=== PATIENT | male | born 1965 | race African-American/Black ===

== ENCOUNTER 2022-03-11 13:21 | Inpatient (IN) | payer OTHER ==
[2022-03-11 15:39] VITALS: BMI 19.9
[2022-03-11] MEDS ORDERED: LOPERAMIDE HCL 2 MG CAPSULE PO PRN (15:44)
[2022-03-11] MEDS ORDERED: METHOCARBAMOL 500 MG TABLET PO PRN (15:44)
[2022-03-11] MEDS ORDERED: NICOTINE 10 MG CARTRIDGE (INHALER) IH PRN (15:44)
[2022-03-11] MEDS ORDERED: ONDANSETRON *ODT* 4 MG TABLET SL PRN (15:44)
[2022-03-11] MEDS ORDERED: BISMUTH SUBSALICYLATE 524 MG/30 ML PO PRN (15:44)
[2022-03-11] MEDS ORDERED: MAG HYDROX/AL HYDROX/SIMETH 30 ML UNIT-DOSE CUP PO PRN (15:44)
[2022-03-11] MEDS ORDERED: NICOTINE POLACRILEX 4 MG GUM BUC PRN (15:44)
[2022-03-11] MEDS ORDERED: BENZOCAINE/MENTHOL (CHLORASEPTIC ) LOZENGE MM PRN (15:44)
[2022-03-11] MEDS ORDERED: MAGNESIUM CITRATE 300 ML BOTTLE PO PRN (15:44)
[2022-03-11] MEDS ORDERED: DICYCLOMINE HCL 10 MG CAPSULE PO PRN (15:44)
[2022-03-11] MEDS ORDERED: MAGNESIUM HYDROX 2400MG/30ML ORAL SUSPENSION 30 ML CUP PO PRN (15:44)
[2022-03-11] MEDS ORDERED: ACETAMINOPHEN 325 MG TABLET (FP) PO PRN ×2 (15:44)
[2022-03-11] MEDS ORDERED: IBUPROFEN 400 MG TABLET (FP) PO PRN (15:44)
[2022-03-11] MEDS: NICOTINE 14 MG/24 HOURS TOPICAL PATCH TD SCH (20:19)
[2022-03-11] MEDS: IBUPROFEN 600 MG TABLET (FP) PO PRN (20:23)
[2022-03-11] MEDS: hydrOXYzine PAMOATE 25 MG CAPSULE (FP) PO SCH ×2 (20:32→21:59)
[2022-03-11] MEDS: levETIRAcetam 500 MG TABLET (FP) PO SCH (21:58)
[2022-03-11] MEDS: amLODIPine BESYLATE 10 MG TABLET (FP) PO SCH (21:58)
[2022-03-11] MEDS: THIAMINE HCL 100 MG TABLET (FP) PO SCH (21:59)
[2022-03-11] MEDS: MELATONIN 5 MG TABLETS PO SCH (21:59)
[2022-03-11] MEDS: FAMOTIDINE 20 MG TABLET PO SCH (21:59)
[2022-03-11] MEDS ORDERED: cloNIDine HCL 0.1 MG TABLET PO ONE (23:40)
[2022-03-12] MEDS: IBUPROFEN 600 MG TABLET (FP) PO PRN ×2 (07:13→23:03)
[2022-03-12] MEDS: FAMOTIDINE 20 MG TABLET PO SCH ×2 (10:20→22:19)
[2022-03-12] MEDS: levETIRAcetam 500 MG TABLET (FP) PO SCH ×2 (10:20→22:19)
[2022-03-12] MEDS: amLODIPine BESYLATE 10 MG TABLET (FP) PO SCH (10:20)
[2022-03-12] MEDS: NICOTINE 14 MG/24 HOURS TOPICAL PATCH TD SCH (10:21)
[2022-03-12] MEDS: PRENATAL VITAMINS W/ FOLIC ACID TABLET (FP) PO SCH (10:21)
[2022-03-12 10:32] LABS: HEMATOCRIT 41.4 % (35.4-49); HEMOGLOBIN 13.7 GM/dL (11.7-16.9); MCH 29.9 pg (25.7-33.7); MCHC 33.1 g/dl (32.0-35.9); MEAN CELL VOLUME 90.5 fl (80-96); MEAN PLT VOLUME 9.2 fl (7.5-11.1); PLATELET COUNT 163 10^3/uL (134-434); RBC 4.58 M/mm3 (4.00-5.60); RDW 13.6 % (11.9-15.9); WHITE BLOOD COUNT 4.4 K/mm3 (4.0-10.0)
[2022-03-12 10:34] LABS: CALCIUM 9.7 mg/dL (8.5-10.1)
[2022-03-12 10:35] LABS: ALBUMIN 3.4 g/dl (3.4-5.0); BLOOD UREA NITROGEN 15.3 mg/dL (7-18)
[2022-03-12 10:38] LABS: CREATININE 0.8 mg/dL (0.55-1.3)
[2022-03-12 10:40] LABS: BILIRUBIN,TOTAL 1.1 mg/dL (0.2-1); TOT PROT 7.6 g/dl (6.4-8.2)
[2022-03-12] MEDS ORDERED: cloNIDine HCL 0.1 MG TABLET PO ONE (22:10)
[2022-03-12] MEDS: MELATONIN 5 MG TABLETS PO SCH (22:19)
[2022-03-12] MEDS: THIAMINE HCL 100 MG TABLET (FP) PO SCH (22:19)
[2022-03-13] MEDS: amLODIPine BESYLATE 10 MG TABLET (FP) PO SCH (10:19)
[2022-03-13] MEDS: FAMOTIDINE 20 MG TABLET PO SCH ×2 (10:19→22:27)
[2022-03-13] MEDS: levETIRAcetam 500 MG TABLET (FP) PO SCH ×2 (10:19→22:27)
[2022-03-13] MEDS: NICOTINE 14 MG/24 HOURS TOPICAL PATCH TD SCH (10:20)
[2022-03-13] MEDS: PRENATAL VITAMINS W/ FOLIC ACID TABLET (FP) PO SCH (10:20)
[2022-03-13] MEDS: IBUPROFEN 600 MG TABLET (FP) PO PRN ×2 (10:22→17:53)
[2022-03-13] MEDS ORDERED: chlordiazePOXIDE HCL 25 MG CAPSULE PO PRN (18:26)
[2022-03-13] MEDS: chlordiazePOXIDE HCL 25 MG CAPSULE PO SCH ×2 (18:55→22:28)
[2022-03-13] MEDS: THIAMINE HCL 100 MG TABLET (FP) PO SCH (22:28)
[2022-03-13] MEDS: MELATONIN 5 MG TABLETS PO SCH (22:28)
[2022-03-14] MEDS: chlordiazePOXIDE HCL 25 MG CAPSULE PO SCH ×2 (05:23→10:10)
[2022-03-14] MEDS: IBUPROFEN 600 MG TABLET (FP) PO PRN (05:59)
[2022-03-14] MEDS: FAMOTIDINE 20 MG TABLET PO SCH ×2 (10:10→22:44)
[2022-03-14] MEDS: NICOTINE 14 MG/24 HOURS TOPICAL PATCH TD SCH (10:10)
[2022-03-14] MEDS: levETIRAcetam 500 MG TABLET (FP) PO SCH ×2 (10:10→22:43)
[2022-03-14] MEDS: PRENATAL VITAMINS W/ FOLIC ACID TABLET (FP) PO SCH (10:10)
[2022-03-14] MEDS: amLODIPine BESYLATE 10 MG TABLET (FP) PO SCH (10:10)
[2022-03-14] MEDS ORDERED: LORazepam 1 MG TABLET PO PRN (10:24)
[2022-03-14] MEDS: LORazepam 2 MG TABLET PO SCH ×3 (11:42→22:45)
[2022-03-14] MEDS: MELATONIN 5 MG TABLETS PO SCH (22:43)
[2022-03-14] MEDS: THIAMINE HCL 100 MG TABLET (FP) PO SCH (22:44)
[2022-03-15] MEDS ORDERED: chlordiazePOXIDE HCL 25 MG CAPSULE PO SCH (05:00)
[2022-03-15] MEDS: LORazepam 2 MG TABLET PO SCH ×4 (06:25→22:59)
[2022-03-15] MEDS ORDERED: cloNIDine HCL 0.1 MG TABLET PO ONE (08:39)
[2022-03-15 10:31] LABS: CALCIUM 9.4 mg/dL (8.5-10.1)
[2022-03-15 10:32] LABS: ALBUMIN 3.4 g/dl (3.4-5.0); BLOOD UREA NITROGEN 17.2 mg/dL (7-18)
[2022-03-15 10:35] LABS: CREATININE 0.8 mg/dL (0.55-1.3)
[2022-03-15 10:37] LABS: BILIRUBIN,TOTAL 0.5 mg/dL (0.2-1)
[2022-03-15 10:38] LABS: TOT PROT 7.3 g/dl (6.4-8.2)
[2022-03-15] MEDS: FAMOTIDINE 20 MG TABLET PO SCH ×2 (11:07→22:58)
[2022-03-15] MEDS: levETIRAcetam 500 MG TABLET (FP) PO SCH ×2 (11:08→22:58)
[2022-03-15] MEDS: amLODIPine BESYLATE 10 MG TABLET (FP) PO SCH (11:08)
[2022-03-15] MEDS: PRENATAL VITAMINS W/ FOLIC ACID TABLET (FP) PO SCH (11:09)
[2022-03-15] MEDS: NICOTINE 14 MG/24 HOURS TOPICAL PATCH TD SCH (11:10)
[2022-03-15 14:29] VITALS: PULSE 79; TEMP 97.5
[2022-03-15] MEDS: cloNIDine HCL 0.1 MG TABLET PO SCH ×2 (14:59→22:58)
[2022-03-15 16:18] VITALS: BP 165/105
[2022-03-15] MEDS: MELATONIN 5 MG TABLETS PO SCH (22:58)
[2022-03-15] MEDS: THIAMINE HCL 100 MG TABLET (FP) PO SCH (22:59)
[2022-03-16] MEDS ORDERED: chlordiazePOXIDE HCL 10 MG CAPSULE PO PRN
[2022-03-16] MEDS ORDERED: LORazepam 1 MG TABLET PO SCH (05:00)
[2022-03-16] MEDS ORDERED: chlordiazePOXIDE HCL 10 MG CAPSULE PO SCH (05:00)
[2022-03-17] MEDS ORDERED: LORazepam 0.5 MG TABLET PO PRN
[2022-03-17] MEDS ORDERED: LORazepam 0.5 MG TABLET PO SCH (05:00)
[2022-03-17] MEDS ORDERED: chlordiazePOXIDE HCL 10 MG CAPSULE PO SCH (05:00)
[2022-03-18] MEDS ORDERED: chlordiazePOXIDE HCL 10 MG CAPSULE PO ONE (05:00)
== END 2022-03-15 23:52 | disposition short-term general hospital (02) | DRG 775 ==
LOC: YASAS 13:21 → Y3N 18:40 → UNDOADMIN 18:40
PROVIDERS: ADMIT Allergy & Immunology; ATTEND Psychiatry & Neurology Psychiatry
PROC: HZ2ZZZZ Detoxification Services for Substance Abuse Treatment (ICD-10-PCS; principal; 2022-03-11)
DX: F10.230 Alcohol dependence with withdrawal, uncomplicated (principal); F12.20 Cannabis dependence, uncomplicated; F17.210 Nicotine dependence, cigarettes, uncomplicated; I10 Essential (primary) hypertension; I45.81 Long QT syndrome; N39.498 Other specified urinary incontinence; G40.909 Epilepsy, unspecified, not intractable, without status epilepticus; M62.81 Muscle weakness (generalized); R94.5 Abnormal results of liver function studies; R26.2 Difficulty in walking, not elsewhere classified; R41.82 Altered mental status, unspecified; W19.XXXA Unspecified fall, initial encounter; Z91.81 History of falling; Y93.89 Activity, other specified; Y92.231 Patient bathroom in hospital as the place of occurrence of the external cause; I73.89 Other specified peripheral vascular diseases; M32.9 Systemic lupus erythematosus, unspecified; U09.9 Post COVID-19 condition, unspecified; Z28.310 Unvaccinated for COVID-19
CPT/HCPCS: 36415; 80053; 85027; 86780; 93005; 93010; C9803-CS; J0735; U0003; U0005

== ENCOUNTER 2022-03-14 19:04 | Emergency (ER) | payer OTHER ==
[2022-03-14 19:37] VITALS: BP 156/99; PULSE 90; TEMP 97.7; BMI 22.9
== END 2022-03-14 20:55 ==
LOC: JER 19:04
DX: R41.82 Altered mental status, unspecified (principal)
CPT/HCPCS: 36415; 80177; 99283-25

== ENCOUNTER 2022-03-15 16:06 | Inpatient (IN) | payer OTHER ==
[2022-03-15 20:23] LABS: BASO % 1.4 % (0-2.0); EOS % 3.2 % (0-4.5); HEMATOCRIT 40.6 % (35.4-49); HEMOGLOBIN 13.6 GM/dL (11.7-16.9); LYMPH % 37.5 % (8-40); MCH 30.3 pg (25.7-33.7); MCHC 33.4 g/dl (32.0-35.9); MEAN CELL VOLUME 90.5 fl (80-96); MONO % 12.4 % (3.8-10.2); NEUT % 45.5 % (42.8-82.8); PLATELET COUNT 224 10^3/uL (134-434); RBC 4.49 M/mm3 (4.00-5.60); RDW 13.9 % (11.9-15.9); WHITE BLOOD COUNT 6.1 K/mm3 (4.0-10.0)
[2022-03-15 20:35] LABS: INR 1.04 (0.83-1.09)
[2022-03-15] MEDS ORDERED: levETIRAcetam 500 MG/5 ML INJECTION VIAL IVPB ONE ×2 (23:11→23:56)
[2022-03-15] MEDS ORDERED: SODIUM CHLORIDE 1,000 ML IV SCH ×2 (23:15)
[2022-03-15] MEDS ORDERED: chlordiazePOXIDE HCL 25 MG CAPSULE ONE (23:57)
[2022-03-16] MEDS: chlordiazePOXIDE HCL 25 MG CAPSULE PO SCH ×5 (00:18→22:07)
[2022-03-16] MEDS ORDERED: PHENAZOPYRIDINE HCL 100 MG TABLET (FP) ONE ×2 (06:28→13:33)
[2022-03-16] MEDS ORDERED: chlordiazePOXIDE HCL 25 MG CAPSULE ONE ×5 (06:28→16:45)
[2022-03-16] MEDS: PHENAZOPYRIDINE HCL 100 MG TABLET (FP) PO SCH ×3 (06:31→22:07)
[2022-03-16 07:49] LABS: EOS % 3.5 % (0-4.5); HEMOGLOBIN 13.6 GM/dL (11.7-16.9); LYMPH % 41.3 % (8-40); MCH 29.3 pg (25.7-33.7); MCHC 32.3 g/dl (32.0-35.9); MEAN CELL VOLUME 90.6 fl (80-96); MEAN PLT VOLUME 8.9 fl (7.5-11.1); MONO % 8.8 % (3.8-10.2); NEUT % 45.4 % (42.8-82.8); PLATELET COUNT 224 10^3/uL (134-434); RBC 4.64 M/mm3 (4.00-5.60); RDW 13.8 % (11.9-15.9); WHITE BLOOD COUNT 5.3 K/mm3 (4.0-10.0)
[2022-03-16 08:11] LABS: EPI CELLS 11 /uL (0-25.1); HYALINE CASTS 1 /uL (0-3.1); URINE APPEARANCE CLEAR; URINE BILIRUBIN NEGATIVE (NEGATIVE); URINE COLOR YELLOW; URINE GLUCOSE (UA) NEGATIVE (NEGATIVE); URINE KETONE NEGATIVE (NEGATIVE); URINE LEUK ESTERASE TRACE (NEGATIVE); URINE NITRITE POSITIVE (NEGATIVE); URINE PROTEIN NEGATIVE (NEGATIVE); URINE RBC 3 /uL (0-23.9); URINE WBC 68 /uL (0-25.8)
[2022-03-16 08:29] LABS: METHADONE, UR NEGATIVE (NEGATIVE); OPIATES, URI NEGATIVE (NEGATIVE); URINE AMPHETAMINES NEGATIVE (NEGATIVE); URINE BARBITURATES NEGATIVE (NEGATIVE)
[2022-03-16 08:30] LABS: PHENCYCLIDINE,URINE NEGATIVE (NEGATIVE)
[2022-03-16 08:32] LABS: COCAINE, UR NEGATIVE (NEGATIVE); URINE BENZODIAZEPINES POSITIVE (NEGATIVE)
[2022-03-16] MEDS: chlordiazePOXIDE HCL 25 MG CAPSULE PO PRN ×2 (08:40→13:36)
[2022-03-16 08:43] LABS: URINE BACTERIA 1226 /uL (0-1359)
[2022-03-16 09:05] LABS: BLOOD UREA NITROGEN 19.4 mg/dL (7-18); CALCIUM 9.3 mg/dL (8.5-10.1)
[2022-03-16 09:06] LABS: MAGNESIUM 2.1 mg/dL (1.8-2.4)
[2022-03-16 09:09] LABS: CREATININE 0.9 mg/dL (0.55-1.3)
[2022-03-16 09:10] LABS: PHOSPHOROUS 4.2 mg/dL (2.5-4.9)
[2022-03-16] MEDS ORDERED: amLODIPine BESYLATE 10 MG TABLET (FP) ONE (09:27)
[2022-03-16] MEDS ORDERED: ENOXAPARIN NA (PORCINE) 40 MG/0.4 ML DISP.SYRIN SQ ONE (09:27)
[2022-03-16] MEDS ORDERED: FAMOTIDINE 20 MG TABLET ONE (09:27)
[2022-03-16] MEDS ORDERED: levETIRAcetam 500 MG TABLET (FP) PO ONE (09:27)
[2022-03-16] MEDS: levETIRAcetam 500 MG TABLET (FP) PO SCH ×2 (09:38→22:07)
[2022-03-16] MEDS: FAMOTIDINE 20 MG TABLET PO SCH ×2 (09:38→22:07)
[2022-03-16] MEDS: ENOXAPARIN NA (PORCINE) 40 MG/0.4 ML DISP.SYRIN SQ SCH (09:41)
[2022-03-16] MEDS ORDERED: amLODIPine BESYLATE 10 MG TABLET (FP) PO SCH (10:00)
[2022-03-16] MEDS ORDERED: THIAMINE HCL 200 MG/2 ML VIAL IVPB SCH (11:00)
[2022-03-16] MEDS ORDERED: THIAMINE HCL 200 MG/2 ML VIAL ONE (11:01)
[2022-03-16] MEDS: LACTATED RINGERS SOLUTION 1,000 ML/1,000 ML INFUS.BAG IV SCH (11:32)
[2022-03-16] MEDS ORDERED: VALSARTAN 40 MG TABLET PO SCH ×2 (13:15)
[2022-03-16] MEDS ORDERED: VALSARTAN 40 MG TABLET PO ONE (13:32)
[2022-03-16] MEDS ORDERED: VALSARTAN 80 MG TABLET ONE (13:33)
[2022-03-16] MEDS ORDERED: HALOPERIDOL LACTATE 5 MG/ML IM ONE (22:07)
[2022-03-17] MEDS: LACTATED RINGERS SOLUTION 1,000 ML/1,000 ML INFUS.BAG IV SCH ×4 (00:36→23:36)
[2022-03-17] MEDS ORDERED: HALOPERIDOL LACTATE 5 MG/ML IM PRN (03:21)
[2022-03-17] MEDS: PHENAZOPYRIDINE HCL 100 MG TABLET (FP) PO SCH ×3 (06:25→23:36)
[2022-03-17] MEDS: chlordiazePOXIDE HCL 25 MG CAPSULE PO SCH ×4 (06:25→23:34)
[2022-03-17] MEDS ORDERED: LACTULOSE 20 GM/30 ML UDC (FOR ORAL USE ONLY) PO ONE (08:45)
[2022-03-17 08:49] LABS: ALBUMIN 3.9 g/dl (3.4-5.0); CALCIUM 9.8 mg/dL (8.5-10.1)
[2022-03-17 08:52] LABS: CREATININE 0.8 mg/dL (0.55-1.3)
[2022-03-17 08:54] LABS: BILIRUBIN,TOTAL 0.7 mg/dL (0.2-1); TOT PROT 8.1 g/dl (6.4-8.2)
[2022-03-17] MEDS: ASPIRIN COATED 81 MG TABLET.EC PO SCH (09:50)
[2022-03-17] MEDS: FAMOTIDINE 20 MG TABLET PO SCH ×2 (09:50→23:35)
[2022-03-17] MEDS: levETIRAcetam 500 MG TABLET (FP) PO SCH ×2 (09:50→23:35)
[2022-03-17] MEDS: VALSARTAN 40 MG TABLET PO SCH (09:50)
[2022-03-17] MEDS: ENOXAPARIN NA (PORCINE) 40 MG/0.4 ML DISP.SYRIN SQ SCH (09:50)
[2022-03-17] MEDS: THIAMINE HCL 100 MG TABLET (FP) PO SCH (09:50)
[2022-03-17] MEDS ORDERED: amLODIPine BESYLATE 10 MG TABLET (FP) PO SCH ×2 (10:00→22:00)
[2022-03-17 10:04] LABS: BASO % 0.7 % (0-2.0); EOS % 2.4 % (0-4.5); HEMATOCRIT 44.6 % (35.4-49); HEMOGLOBIN 14.7 GM/dL (11.7-16.9); LYMPH % 30.4 % (8-40); MCH 29.8 pg (25.7-33.7); MCHC 32.9 g/dl (32.0-35.9); MEAN CELL VOLUME 90.6 fl (80-96); MEAN PLT VOLUME 8.7 fl (7.5-11.1); NEUT % 45.5 % (42.8-82.8); PLATELET COUNT 224 10^3/uL (134-434); RBC 4.92 M/mm3 (4.00-5.60); RDW 13.8 % (11.9-15.9); WHITE BLOOD COUNT 9.7 K/mm3 (4.0-10.0)
[2022-03-17 12:19] LABS: ANISOCYTOSIS 1+; MACROCYTOSIS 0; OVALOCYTE 1+; TEAR DROP CELLS 1+
[2022-03-17] MEDS ORDERED: LACTULOSE 20 GM/30 ML UDC (FOR ORAL USE ONLY) PO PRN (16:56)
[2022-03-17] MEDS: LACTULOSE 20 GM/30 ML UDC (FOR ORAL USE ONLY) PO SCH (23:34)
[2022-03-17] MEDS ORDERED: amLODIPine BESYLATE 10 MG TABLET (FP) PO ONE (23:34)
[2022-03-18] MEDS ORDERED: chlordiazePOXIDE HCL 10 MG CAPSULE PO PRN
[2022-03-18] MEDS ORDERED: hydrALAZINE HCL 10 MG TABLET PO ONE (03:09)
[2022-03-18] MEDS ORDERED: LACTULOSE 20 GM/30 ML UDC (FOR RECTAL USE ONLY) PR SCH (05:44)
[2022-03-18] MEDS: chlordiazePOXIDE HCL 10 MG CAPSULE PO SCH ×4 (06:00→23:56)
[2022-03-18] MEDS: LACTULOSE 20 GM/30 ML UDC (FOR ORAL USE ONLY) PO SCH ×3 (06:00→22:23)
[2022-03-18] MEDS: PHENAZOPYRIDINE HCL 100 MG TABLET (FP) PO SCH ×3 (06:00→22:24)
[2022-03-18 06:46] LABS: ARTERIAL BLD GAS O2 SATURATION 96.4 % (95-98); ARTERIAL BLOOD GAS BASE EXCESS -0.6 mmol/L (-2-2); ARTERIAL BLOOD GAS PO2 79.8 mmHg (80-100); ARTERIAL BLOOD GAS pH 7.457 (7.350-7.450)
[2022-03-18 09:04] LABS: EPI CELLS 3 /uL (0-25.1); HYALINE CASTS 0 /uL (0-3.1); PH,URINE 7.5 (5.0-8.0); URINE APPEARANCE CLEAR; URINE BILIRUBIN NEGATIVE (NEGATIVE); URINE COLOR DK YELLOW; URINE GLUCOSE (UA) NEGATIVE (NEGATIVE); URINE KETONE NEGATIVE (NEGATIVE); URINE LEUK ESTERASE TRACE (NEGATIVE); URINE NITRITE POSITIVE (NEGATIVE); URINE PROTEIN NEGATIVE (NEGATIVE); URINE RBC 6 /uL (0-23.9); URINE WBC 10 /uL (0-25.8)
[2022-03-18 09:09] LABS: METHADONE, UR NEGATIVE (NEGATIVE); OPIATES, URI NEGATIVE (NEGATIVE); PHENCYCLIDINE,URINE NEGATIVE (NEGATIVE); URINE AMPHETAMINES NEGATIVE (NEGATIVE)
[2022-03-18 09:22] LABS: COCAINE, UR NEGATIVE (NEGATIVE); URINE BARBITURATES NEGATIVE (NEGATIVE); URINE BENZODIAZEPINES POSITIVE (NEGATIVE)
[2022-03-18] MEDS: VALSARTAN 40 MG TABLET PO SCH (09:41)
[2022-03-18] MEDS: ASPIRIN COATED 81 MG TABLET.EC PO SCH (09:41)
[2022-03-18] MEDS: levETIRAcetam 500 MG TABLET (FP) PO SCH ×2 (09:41→22:24)
[2022-03-18] MEDS: FAMOTIDINE 20 MG TABLET PO SCH ×2 (09:41→22:24)
[2022-03-18] MEDS: ENOXAPARIN NA (PORCINE) 40 MG/0.4 ML DISP.SYRIN SQ SCH (09:41)
[2022-03-18] MEDS: THIAMINE HCL 100 MG TABLET (FP) PO SCH (09:41)
[2022-03-18] MEDS ORDERED: LORazepam 2 MG/ML SDV VIAL IVPUSH ONE (10:45)
[2022-03-18 11:22] LABS: BASO % 0.6 % (0-2.0); EOS % 1.2 % (0-4.5); HEMATOCRIT 39.8 % (35.4-49); HEMOGLOBIN 13.4 GM/dL (11.7-16.9); MCH 29.9 pg (25.7-33.7); MCHC 33.8 g/dl (32.0-35.9); MEAN CELL VOLUME 88.5 fl (80-96); MEAN PLT VOLUME 8.7 fl (7.5-11.1); MONO % 10.1 % (3.8-10.2); NEUT % 66.1 % (42.8-82.8); PLATELET COUNT 283 10^3/uL (134-434); RBC 4.49 M/mm3 (4.00-5.60); RDW 13.6 % (11.9-15.9); WHITE BLOOD COUNT 9.2 K/mm3 (4.0-10.0)
[2022-03-18 11:36] LABS: ALBUMIN 3.8 g/dl (3.4-5.0); BLOOD UREA NITROGEN 7.8 mg/dL (7-18); CALCIUM 9.9 mg/dL (8.5-10.1); MAGNESIUM 1.8 mg/dL (1.8-2.4)
[2022-03-18 11:40] LABS: BILIRUBIN,TOTAL 0.7 mg/dL (0.2-1); CREATININE 0.7 mg/dL (0.55-1.3); PHOSPHOROUS 4.4 mg/dL (2.5-4.9); TOT PROT 8.1 g/dl (6.4-8.2)
[2022-03-18] MEDS ORDERED: VALSARTAN 40 MG TABLET PO SCH (12:25)
[2022-03-18] MEDS ORDERED: LORazepam 2 MG/ML SDV VIAL IVPUSH PRN (12:26)
[2022-03-18 13:48] LABS: URINE BACTERIA 298.9 /uL (0-1359)
[2022-03-18] MEDS ORDERED: VALSARTAN 40 MG TABLET PO ONE ×2 (20:00→22:30)
[2022-03-19] MEDS ORDERED: chlordiazePOXIDE HCL 10 MG CAPSULE PO SCH (05:00)
[2022-03-19] MEDS: PHENAZOPYRIDINE HCL 100 MG TABLET (FP) PO SCH ×3 (06:13→23:08)
[2022-03-19] MEDS: LACTULOSE 20 GM/30 ML UDC (FOR ORAL USE ONLY) PO SCH ×2 (06:13→16:28)
[2022-03-19 08:55] LABS: BASO % 0.6 % (0-2.0); EOS % 0.1 % (0-4.5); HEMATOCRIT 42.6 % (35.4-49); HEMOGLOBIN 13.9 GM/dL (11.7-16.9); LYMPH % 16.5 % (8-40); MCH 29.3 pg (25.7-33.7); MCHC 32.7 g/dl (32.0-35.9); MEAN CELL VOLUME 89.6 fl (80-96); MEAN PLT VOLUME 8.7 fl (7.5-11.1); MONO % 15.8 % (3.8-10.2); PLATELET COUNT 275 10^3/uL (134-434); RBC 4.75 M/mm3 (4.00-5.60); RDW 13.7 % (11.9-15.9); WHITE BLOOD COUNT 13.3 K/mm3 (4.0-10.0)
[2022-03-19 09:36] LABS: CALCIUM 9.3 mg/dL (8.5-10.1)
[2022-03-19 09:37] LABS: BLOOD UREA NITROGEN 16.2 mg/dL (7-18)
[2022-03-19] MEDS ORDERED: amLODIPine BESYLATE 10 MG TABLET (FP) PO SCH ×3 (10:00→22:00)
[2022-03-19] MEDS ORDERED: VALSARTAN 40 MG TABLET PO SCH (10:00)
[2022-03-19] MEDS: levETIRAcetam 500 MG TABLET (FP) PO SCH (10:13)
[2022-03-19] MEDS: FAMOTIDINE 20 MG TABLET PO SCH (10:13)
[2022-03-19] MEDS: THIAMINE HCL 100 MG TABLET (FP) PO SCH (10:14)
[2022-03-19] MEDS: ASPIRIN COATED 81 MG TABLET.EC PO SCH (10:14)
[2022-03-19] MEDS: ENOXAPARIN NA (PORCINE) 40 MG/0.4 ML DISP.SYRIN SQ SCH (10:15)
[2022-03-19 13:45] LABS: ARTERIAL BLD GAS O2 SATURATION 96.3 % (95-98); ARTERIAL BLOOD GAS BASE EXCESS 2.3 mmol/L (-2-2); ARTERIAL BLOOD GAS PO2 75.3 mmHg (80-100); ARTERIAL BLOOD GAS pH 7.508 (7.350-7.450)
[2022-03-19 13:49] LABS: ALLENS TEST POSITIVE
[2022-03-19] MEDS ORDERED: VANCOMYCIN 1 GM/200 ML PREMIX BAG IVPB ONE (14:25)
[2022-03-19] MEDS ORDERED: CEFTRIAXONE 1 GM in DEXTROSE 5%-WATER - 50 ML IVPB SCH (14:30)
[2022-03-19] MEDS ORDERED: LACTULOSE 20 GM/30 ML UDC (FOR RECTAL USE ONLY) PR SCH ×2 (14:30→22:00)
[2022-03-19] MEDS ORDERED: cefTRIAXone SODIUM 1 GM VIAL ONE (15:49)
[2022-03-19] MEDS ORDERED: DEXTROSE 5%-WATER - 50 ML IVPB ONE (15:49)
[2022-03-19 17:19] LABS: LACTIC ACID 3.2 mmol/L (0.4-2.0)
[2022-03-19] MEDS: LACTATED RINGERS SOLUTION 1,000 ML/1,000 ML INFUS.BAG IV SCH (18:15)
[2022-03-19] MEDS ORDERED: FAMOTIDINE 20 MG TABLET PO SCH (22:00)
[2022-03-19] MEDS ORDERED: levETIRAcetam 500 MG TABLET (FP) PO SCH (22:00)
[2022-03-19] MEDS ORDERED: ACETAMINOPHEN 1000 MG/100 ML BAG IVPB ONE (22:10)
[2022-03-19] MEDS ORDERED: FAMOTIDINE 20 MG/50 ML IVPB 20 MG/50 ML MG IVPB ONE (22:11)
[2022-03-19] MEDS ORDERED: METOPROLOL TARTRATE 5 MG/5 ML VIAL IVPUSH ONE (22:12)
[2022-03-19] MEDS: levETIRAcetam 500 MG/5 ML INJECTION VIAL IVPB SCH (23:17)
[2022-03-19] MEDS: LACTULOSE 10 GM/15 ML BULK BOTTLE RC SCH (23:17)
[2022-03-20] MEDS ORDERED: METOPROLOL TARTRATE 5 MG/5 ML VIAL IVPUSH ONE (02:42)
[2022-03-20] MEDS ORDERED: chlordiazePOXIDE HCL 10 MG CAPSULE PO ONE (05:00)
[2022-03-20] MEDS: PHENAZOPYRIDINE HCL 100 MG TABLET (FP) PO SCH (05:47)
[2022-03-20] MEDS: LACTULOSE 10 GM/15 ML BULK BOTTLE RC SCH ×3 (05:47→22:58)
[2022-03-20] MEDS ORDERED: cefTRIAXone SODIUM 1 GM VIAL ONE (09:31)
[2022-03-20] MEDS ORDERED: DEXTROSE 5%-WATER - 50 ML IVPB ONE ×4 (09:31→23:58)
[2022-03-20] MEDS: ENOXAPARIN NA (PORCINE) 40 MG/0.4 ML DISP.SYRIN SQ SCH (09:40)
[2022-03-20] MEDS: levETIRAcetam 500 MG/5 ML INJECTION VIAL IVPB SCH ×2 (09:40→22:58)
[2022-03-20 09:56] LABS: BASO % 0.7 % (0-2.0); EOS % 0.3 % (0-4.5); HEMATOCRIT 37.1 % (35.4-49); HEMOGLOBIN 12.4 GM/dL (11.7-16.9); LYMPH % 12.8 % (8-40); MCH 29.8 pg (25.7-33.7); MCHC 33.5 g/dl (32.0-35.9); MEAN CELL VOLUME 88.8 fl (80-96); MEAN PLT VOLUME 8.3 fl (7.5-11.1); MONO % 14.6 % (3.8-10.2); NEUT % 71.6 % (42.8-82.8); PLATELET COUNT 298 10^3/uL (134-434); RBC 4.18 M/mm3 (4.00-5.60); RDW 13.5 % (11.9-15.9); WHITE BLOOD COUNT 14.6 K/mm3 (4.0-10.0)
[2022-03-20] MEDS ORDERED: THIAMINE HCL 100 MG TABLET (FP) PO SCH (10:00)
[2022-03-20] MEDS ORDERED: CEFTRIAXONE 1 GM in DEXTROSE 5%-WATER - 50 ML IVPB SCH (10:00)
[2022-03-20] MEDS ORDERED: PIPERACILLIN/TAZOB 3.375 GM 3.375 GM in DEXTROSE 5%-WATER - 50 ML IVPB SCH (10:00)
[2022-03-20] MEDS ORDERED: VANCOMYCIN 1 GM in D5W (PRE-DOCKED) 1,000 MG/250 ML IVPB SCH (10:00)
[2022-03-20] MEDS ORDERED: ACETAMINOPHEN 1000 MG/100 ML BAG IVPB PRN (10:00)
[2022-03-20] MEDS ORDERED: VALSARTAN 40 MG TABLET PO SCH (10:00)
[2022-03-20 10:18] LABS: CALCIUM 8.9 mg/dL (8.5-10.1)
[2022-03-20 10:19] LABS: BLOOD UREA NITROGEN 22.1 mg/dL (7-18)
[2022-03-20 10:22] LABS: CREATININE 0.9 mg/dL (0.55-1.3)
[2022-03-20] MEDS: THIAMINE HCL 200 MG/2 ML VIAL IVPB SCH ×2 (11:00→22:58)
[2022-03-20] MEDS ORDERED: PIPERACILLIN/TAZOBACTAM 3.375 GM VIAL IVPB ONE ×3 (11:58→23:57)
[2022-03-20] MEDS: METOPROLOL TARTRATE 5 MG/5 ML VIAL IVPUSH PRN ×3 (12:09→23:29)
[2022-03-20] MEDS: ASPIRIN COATED 81 MG TABLET.EC PO SCH (13:02)
[2022-03-20] MEDS: PIPERACILLIN/TAZOB 3.375 GM 3.375 GM in DEXTROSE 5%-WATER - 50 ML IVPB SCH ×2 (13:07→18:11)
[2022-03-20] MEDS: VANCOMYCIN/WATER FOR INJ (PEG) 1,000 MG/200 ML BAG IVPB SCH (13:40)
[2022-03-20] MEDS ORDERED: VANCOMYCIN/WATER FOR INJ (PEG) 1,000 MG/200 ML BAG IVPB ONE (16:00)
[2022-03-20] MEDS: LACTATED RINGERS SOLUTION 1,000 ML/1,000 ML INFUS.BAG IV SCH (22:58)
[2022-03-21] MEDS: VANCOMYCIN/WATER FOR INJ (PEG) 1,000 MG/200 ML BAG IVPB SCH ×2 (01:10→12:29)
[2022-03-21] MEDS: PIPERACILLIN/TAZOB 3.375 GM 3.375 GM in DEXTROSE 5%-WATER - 50 ML IVPB SCH ×3 (02:30→18:07)
[2022-03-21] MEDS: METOPROLOL TARTRATE 5 MG/5 ML VIAL IVPUSH PRN ×4 (03:26→20:54)
[2022-03-21] MEDS: LACTULOSE 10 GM/15 ML BULK BOTTLE RC SCH ×3 (05:56→22:00)
[2022-03-21] MEDS: hydrALAZINE HCL 20 MG/ML VIAL IVPUSH SCH ×2 (08:32→16:03)
[2022-03-21 08:45] LABS: BASO % 0.7 % (0-2.0); EOS % 1.3 % (0-4.5); HEMATOCRIT 37.1 % (35.4-49); HEMOGLOBIN 12.2 GM/dL (11.7-16.9); LYMPH % 14.7 % (8-40); MCH 29.4 pg (25.7-33.7); MCHC 32.8 g/dl (32.0-35.9); MEAN CELL VOLUME 89.7 fl (80-96); MEAN PLT VOLUME 8.5 fl (7.5-11.1); MONO % 11.6 % (3.8-10.2); NEUT % 71.7 % (42.8-82.8); PLATELET COUNT 324 10^3/uL (134-434); RBC 4.14 M/mm3 (4.00-5.60); RDW 13.2 % (11.9-15.9); WHITE BLOOD COUNT 12.6 K/mm3 (4.0-10.0)
[2022-03-21 09:00] LABS: CALCIUM 9.2 mg/dL (8.5-10.1)
[2022-03-21 09:01] LABS: ALBUMIN 3.1 g/dl (3.4-5.0); BLOOD UREA NITROGEN 19.7 mg/dL (7-18); MAGNESIUM 2.3 mg/dL (1.8-2.4)
[2022-03-21 09:04] LABS: PHOSPHOROUS 2.6 mg/dL (2.5-4.9)
[2022-03-21 09:05] LABS: BILIRUBIN,TOTAL 0.7 mg/dL (0.2-1); TOT PROT 7.7 g/dl (6.4-8.2)
[2022-03-21] MEDS ORDERED: DEXTROSE 5%-WATER - 50 ML IVPB ONE ×2 (09:05→16:45)
[2022-03-21] MEDS ORDERED: PIPERACILLIN/TAZOBACTAM 3.375 GM VIAL IVPB ONE ×2 (09:05→16:44)
[2022-03-21] MEDS: ENOXAPARIN NA (PORCINE) 40 MG/0.4 ML DISP.SYRIN SQ SCH (09:20)
[2022-03-21] MEDS: ASPIRIN COATED 81 MG TABLET.EC PO SCH (09:27)
[2022-03-21] MEDS: levETIRAcetam 500 MG/5 ML INJECTION VIAL IVPB SCH ×2 (09:27→21:04)
[2022-03-21] MEDS ORDERED: FUROSEMIDE 40 MG/4 ML INJECTABLE VIAL IVPUSH ONE (10:48)
[2022-03-21] MEDS: AMINO ACIDS 4.25%/D5W 1,000 ML IV SCH ×2 (10:55→20:56)
[2022-03-21] MEDS: THIAMINE HCL 200 MG/2 ML VIAL IVPB SCH ×2 (11:11→21:58)
[2022-03-21 14:45] LABS: HIV INTERPRETATION NEGATIVE (NEGATIVE)
[2022-03-21] MEDS ORDERED: RAPID SEQUENCE INTUBATION KIT NR ONE (23:41)
[2022-03-22] MEDS: hydrALAZINE HCL 20 MG/ML VIAL IVPUSH SCH
[2022-03-22] MEDS ORDERED: METOPROLOL TARTRATE 5 MG/5 ML VIAL IVPUSH PRN ×2 (00:10→04:06)
[2022-03-22] MEDS ORDERED: DEXAMETHASONE SOD PHOSPHATE 10 MG/1 ML VIAL IVPUSH ONE (00:14)
[2022-03-22] MEDS ORDERED: PROPOFOL 1,000,000 MCG/100 ML VIAL IVPUSH SCH (00:15)
[2022-03-22] MEDS ORDERED: MIDAZOLAM IN 0.9 % SOD.CHLORID 1 MG/1 ML PLAST..BAG ONE (00:18)
[2022-03-22] MEDS ORDERED: MINERAL OIL/PETROLATUM,WHITE 3.5 GM TUBE OU PRN (00:32)
[2022-03-22] MEDS: MIDAZOLAM IN 0.9 % SOD.CHLORID 100 MG/100 ML PLAST..BAG IVPB SCH (00:44)
[2022-03-22] MEDS: VANCOMYCIN/WATER FOR INJ (PEG) 1,000 MG/200 ML BAG IVPB SCH ×2 (00:44→13:50)
[2022-03-22] MEDS: PROPOFOL 1,000,000 MCG/100 ML VIAL IVPB SCH ×2 (00:44→21:32)
[2022-03-22] MEDS ORDERED: ROCURONIUM BROMIDE 500 MG/300 ML BAG IVPB SCH (00:45)
[2022-03-22] MEDS ORDERED: ROCURONIUM BROMIDE 50 MG/5 ML VIAL IV ONE (00:59)
[2022-03-22 01:11] LABS: ARTERIAL BLD GAS O2 SATURATION 72.8 % (95-98); ARTERIAL BLOOD GAS BASE EXCESS -0.5 mmol/L (-2-2); ARTERIAL BLOOD GAS pH 7.415 (7.350-7.450)
[2022-03-22 01:13] LABS: VENT MODE A/C; VENT RATE 14
[2022-03-22 01:15] LABS: ARTERIAL BLOOD GAS PO2 37.7 mmHg (80-100)
[2022-03-22 01:26] LABS: BASO % 0.9 % (0-2.0); EOS % 0.7 % (0-4.5); HEMATOCRIT 36.9 % (35.4-49); HEMOGLOBIN 12.2 GM/dL (11.7-16.9); LYMPH % 22.6 % (8-40); MCH 29.6 pg (25.7-33.7); MCHC 33.1 g/dl (32.0-35.9); MEAN CELL VOLUME 89.3 fl (80-96); MEAN PLT VOLUME 9.1 fl (7.5-11.1); NEUT % 62.8 % (42.8-82.8); PLATELET COUNT 347 10^3/uL (134-434); RBC 4.13 M/mm3 (4.00-5.60); RDW 13.4 % (11.9-15.9); WHITE BLOOD COUNT 12.8 K/mm3 (4.0-10.0)
[2022-03-22 01:46] LABS: CALCIUM 8.5 mg/dL (8.5-10.1)
[2022-03-22 01:47] LABS: ALBUMIN 2.7 g/dl (3.4-5.0); BLOOD UREA NITROGEN 22.4 mg/dL (7-18); MAGNESIUM 1.9 mg/dL (1.8-2.4)
[2022-03-22 01:50] LABS: PHOSPHOROUS 2.6 mg/dL (2.5-4.9)
[2022-03-22 01:51] LABS: BILIRUBIN,TOTAL 0.7 mg/dL (0.2-1); TOT PROT 7.6 g/dl (6.4-8.2)
[2022-03-22] MEDS: PIPERACILLIN/TAZOB 3.375 GM 3.375 GM in DEXTROSE 5%-WATER - 50 ML IVPB SCH ×3 (02:20→17:51)
[2022-03-22] MEDS ORDERED: DEXTROSE 5%-WATER - 50 ML IVPB ONE ×3 (02:38→17:48)
[2022-03-22] MEDS ORDERED: PIPERACILLIN/TAZOBACTAM 3.375 GM VIAL IVPB ONE ×3 (02:38→17:48)
[2022-03-22] MEDS ORDERED: MAGNESIUM OXIDE 400 MG TABLET (FP) NGT ONE (02:52)
[2022-03-22] MEDS: KCL 10 MEQ IVPB 10 MEQ/100 ML INFUS.BAG IVPB SCH ×2 (03:09→04:20)
[2022-03-22 05:03] LABS: ARTERIAL BLD GAS O2 SATURATION 99.2 % (95-98); ARTERIAL BLOOD GAS BASE EXCESS -2.8 mmol/L (-2-2); ARTERIAL BLOOD GAS PO2 197.4 mmHg (80-100); ARTERIAL BLOOD GAS pH 7.279 (7.350-7.450)
[2022-03-22 05:10] LABS: ALLENS TEST POSITIVE
[2022-03-22 05:11] LABS: VENT MODE A/C; VENT RATE 14
[2022-03-22] MEDS ORDERED: LACTULOSE 10 GM/15 ML BULK BOTTLE RC SCH (06:00)
[2022-03-22] MEDS ORDERED: LACTULOSE 10 GM/15 ML BULK BOTTLE NGT SCH (06:44)
[2022-03-22 07:56] LABS: BASO % 0.3 % (0-2.0); EOS % 0.1 % (0-4.5); HEMATOCRIT 36.6 % (35.4-49); HEMOGLOBIN 11.9 GM/dL (11.7-16.9); LYMPH % 5.4 % (8-40); MCH 29.3 pg (25.7-33.7); MCHC 32.5 g/dl (32.0-35.9); MEAN CELL VOLUME 90.1 fl (80-96); MEAN PLT VOLUME 8.7 fl (7.5-11.1); MONO % 4.8 % (3.8-10.2); NEUT % 89.4 % (42.8-82.8); PLATELET COUNT 341 10^3/uL (134-434); RBC 4.06 M/mm3 (4.00-5.60); RDW 13.4 % (11.9-15.9); WHITE BLOOD COUNT 17.7 K/mm3 (4.0-10.0)
[2022-03-22] MEDS ORDERED: hydrALAZINE HCL 20 MG/ML VIAL IVPUSH SCH (08:00)
[2022-03-22 08:14] LABS: CALCIUM 8.5 mg/dL (8.5-10.1)
[2022-03-22 08:15] LABS: ALBUMIN 2.6 g/dl (3.4-5.0); BLOOD UREA NITROGEN 24.9 mg/dL (7-18); MAGNESIUM 2.2 mg/dL (1.8-2.4)
[2022-03-22 08:18] LABS: PHOSPHOROUS 5.4 mg/dL (2.5-4.9)
[2022-03-22 08:19] LABS: TOT PROT 7.4 g/dl (6.4-8.2)
[2022-03-22 08:20] LABS: BILIRUBIN,TOTAL 0.4 mg/dL (0.2-1)
[2022-03-22] MEDS: PANTOPRAZOLE SODIUM 40 MG VIAL IVPUSH SCH (09:12)
[2022-03-22] MEDS: THIAMINE HCL 200 MG/2 ML VIAL IVPB SCH ×2 (09:12→21:15)
[2022-03-22] MEDS: levETIRAcetam 500 MG/5 ML INJECTION VIAL IVPB SCH ×2 (09:12→21:15)
[2022-03-22] MEDS: ENOXAPARIN NA (PORCINE) 40 MG/0.4 ML DISP.SYRIN SQ SCH (09:12)
[2022-03-22] MEDS: MUPIROCIN 2% TOPICAL OINTMENT FOR DECOLONIZATION NS SCH ×2 (09:13→21:15)
[2022-03-22] MEDS: ASPIRIN COATED 81 MG TABLET.EC PO SCH (09:13)
[2022-03-22] MEDS ORDERED: AMINO ACIDS 4.25%/D5W 1,000 ML IV SCH (09:15)
[2022-03-22] MEDS ORDERED: ENOXAPARIN NA (PORCINE) 40 MG/0.4 ML DISP.SYRIN SQ SCH (10:00)
[2022-03-22] MEDS ORDERED: KCL 10 MEQ IVPB 10 MEQ/100 ML INFUS.BAG IVPB SCH (13:45)
[2022-03-22] MEDS: LACTULOSE 20 GM/30 ML UDC (FOR ORAL USE ONLY) NGT SCH ×2 (14:00→21:14)
[2022-03-22] MEDS: POTASSIUM CHLORIDE ORAL LIQUID 20 MEQ/15 ML PO ONE ×2 (16:31→16:46)
[2022-03-22] MEDS ORDERED: POTASSIUM CHLORIDE ORAL LIQUID 20 MEQ/15 ML PO ONE (16:45)
[2022-03-22] MEDS: CHLORHEXIDINE GLUCONATE 4% CLEANSER FOR DECOLONIZATION TP SCH (21:15)
[2022-03-22] MEDS ORDERED: amLODIPine BESYLATE 10 MG TABLET (FP) PO SCH (22:00)
[2022-03-23] MEDS: PROPOFOL 1,000,000 MCG/100 ML VIAL IVPB SCH ×2 (00:16→05:37)
[2022-03-23] MEDS ORDERED: PIPERACILLIN/TAZOBACTAM 3.375 GM VIAL IVPB ONE ×3 (01:18→18:08)
[2022-03-23] MEDS ORDERED: DEXTROSE 5%-WATER - 50 ML IVPB ONE ×3 (01:19→18:09)
[2022-03-23] MEDS: PIPERACILLIN/TAZOB 3.375 GM 3.375 GM in DEXTROSE 5%-WATER - 50 ML IVPB SCH ×3 (01:23→18:28)
[2022-03-23] MEDS: VANCOMYCIN/WATER FOR INJ (PEG) 1,000 MG/200 ML BAG IVPB SCH ×2 (02:05→02:22)
[2022-03-23] MEDS: VANCOMYCIN 1 GRAM (PRE-DOCKED) 1,000 MG/250 ML BAG IVPB SCH ×2 (02:05→14:34)
[2022-03-23] MEDS: MIDAZOLAM IN 0.9 % SOD.CHLORID 100 MG/100 ML PLAST..BAG IVPB SCH (02:18)
[2022-03-23] MEDS: LACTULOSE 20 GM/30 ML UDC (FOR ORAL USE ONLY) NGT SCH ×3 (05:14→21:15)
[2022-03-23 06:39] LABS: BASO % 0.5 % (0-2.0); HEMATOCRIT 38.5 % (35.4-49); HEMOGLOBIN 12.4 GM/dL (11.7-16.9); LYMPH % 8.3 % (8-40); MCH 29.3 pg (25.7-33.7); MCHC 32.2 g/dl (32.0-35.9); MEAN CELL VOLUME 90.9 fl (80-96); MEAN PLT VOLUME 8.9 fl (7.5-11.1); MONO % 7.9 % (3.8-10.2); NEUT % 82.3 % (42.8-82.8); PLATELET COUNT 323 10^3/uL (134-434); RBC 4.23 M/mm3 (4.00-5.60); RDW 13.6 % (11.9-15.9); WHITE BLOOD COUNT 23.8 K/mm3 (4.0-10.0)
[2022-03-23 06:55] LABS: ARTERIAL BLD GAS O2 SATURATION 97.1 % (95-98); ARTERIAL BLOOD GAS BASE EXCESS -1.6 mmol/L (-2-2); ARTERIAL BLOOD GAS PO2 92.3 mmHg (80-100); ARTERIAL BLOOD GAS pH 7.397 (7.350-7.450)
[2022-03-23 06:57] LABS: ALLENS TEST POSITIVE
[2022-03-23 07:01] LABS: VENT MODE A/C; VENT RATE 14
[2022-03-23 07:34] LABS: ALBUMIN 2.5 g/dl (3.4-5.0); BLOOD UREA NITROGEN 29.3 mg/dL (7-18); CALCIUM 8.8 mg/dL (8.5-10.1); MAGNESIUM 2.4 mg/dL (1.8-2.4)
[2022-03-23 07:37] LABS: CREATININE 1.1 mg/dL (0.55-1.3); PHOSPHOROUS 3.4 mg/dL (2.5-4.9)
[2022-03-23 07:39] LABS: BILIRUBIN,TOTAL 0.3 mg/dL (0.2-1); TOT PROT 7.2 g/dl (6.4-8.2)
[2022-03-23] MEDS: THIAMINE HCL 200 MG/2 ML VIAL IVPB SCH ×2 (09:10→21:16)
[2022-03-23] MEDS: ASPIRIN COATED 81 MG TABLET.EC PO SCH (09:11)
[2022-03-23] MEDS: ENOXAPARIN NA (PORCINE) 40 MG/0.4 ML DISP.SYRIN SQ SCH (09:11)
[2022-03-23] MEDS: PANTOPRAZOLE SODIUM 40 MG VIAL IVPUSH SCH (09:11)
[2022-03-23] MEDS: levETIRAcetam 500 MG/5 ML INJECTION VIAL IVPB SCH ×2 (09:11→21:15)
[2022-03-23] MEDS: MUPIROCIN 2% TOPICAL OINTMENT FOR DECOLONIZATION NS SCH ×2 (09:14→21:15)
[2022-03-23 11:28] LABS: ANISOCYTOSIS 1+; MACROCYTOSIS 0; TEAR DROP CELLS 1+
[2022-03-23] MEDS: DEXMEDETOMIDINE IN 0.9 % NACL 400 MCG/100 ML VIAL IVPB SCH (21:14)
[2022-03-23] MEDS: CHLORHEXIDINE GLUCONATE 4% CLEANSER FOR DECOLONIZATION TP SCH (21:15)
[2022-03-24] MEDS ORDERED: PIPERACILLIN/TAZOBACTAM 3.375 GM VIAL IVPB ONE ×3 (01:51→14:45)
[2022-03-24] MEDS: VANCOMYCIN 1 GRAM (PRE-DOCKED) 1,000 MG/250 ML BAG IVPB SCH ×2 (01:51→14:25)
[2022-03-24] MEDS ORDERED: DEXTROSE 5%-WATER - 50 ML IVPB ONE ×3 (01:52→14:46)
[2022-03-24] MEDS: PROPOFOL 1,000,000 MCG/100 ML VIAL IVPB SCH (01:57)
[2022-03-24] MEDS: MIDAZOLAM IN 0.9 % SOD.CHLORID 100 MG/100 ML PLAST..BAG IVPB SCH (01:57)
[2022-03-24] MEDS: PIPERACILLIN/TAZOB 3.375 GM 3.375 GM in DEXTROSE 5%-WATER - 50 ML IVPB SCH ×3 (01:57→17:07)
[2022-03-24] MEDS: LACTULOSE 20 GM/30 ML UDC (FOR ORAL USE ONLY) NGT SCH ×3 (05:50→20:59)
[2022-03-24 05:57] LABS: HEMATOCRIT 33.2 % (35.4-49); HEMOGLOBIN 10.9 GM/dL (11.7-16.9); MCH 28.9 pg (25.7-33.7); MEAN CELL VOLUME 87.8 fl (80-96); MEAN PLT VOLUME 8.8 fl (7.5-11.1); PLATELET COUNT 337 10^3/uL (134-434); RBC 3.78 M/mm3 (4.00-5.60); RDW 13.5 % (11.9-15.9); WHITE BLOOD COUNT 26.5 K/mm3 (4.0-10.0)
[2022-03-24 06:18] LABS: CALCIUM 8.5 mg/dL (8.5-10.1)
[2022-03-24 06:19] LABS: ALBUMIN 2.2 g/dl (3.4-5.0); MAGNESIUM 2.3 mg/dL (1.8-2.4)
[2022-03-24 06:22] LABS: CREATININE 1.1 mg/dL (0.55-1.3); PHOSPHOROUS 2.6 mg/dL (2.5-4.9)
[2022-03-24 06:24] LABS: BILIRUBIN,TOTAL 0.3 mg/dL (0.2-1); TOT PROT 6.7 g/dl (6.4-8.2)
[2022-03-24] MEDS: ASPIRIN COATED 81 MG TABLET.EC PO SCH (09:39)
[2022-03-24] MEDS: MUPIROCIN 2% TOPICAL OINTMENT FOR DECOLONIZATION NS SCH ×2 (09:39→20:59)
[2022-03-24] MEDS: levETIRAcetam 500 MG/5 ML INJECTION VIAL IVPB SCH ×2 (09:39→20:59)
[2022-03-24] MEDS: PANTOPRAZOLE SODIUM 40 MG VIAL IVPUSH SCH (09:40)
[2022-03-24] MEDS: THIAMINE HCL 200 MG/2 ML VIAL IVPB SCH ×2 (10:01→20:59)
[2022-03-24 10:25] LABS: ANISOCYTOSIS 0; MACROCYTOSIS 0
[2022-03-24] MEDS: DEXMEDETOMIDINE IN 0.9 % NACL 400 MCG/100 ML VIAL IVPB SCH ×3 (10:51→14:50)
[2022-03-24] MEDS ORDERED: POTASSIUM CHLORIDE ORAL LIQUID 20 MEQ/15 ML PO ONE (13:38)
[2022-03-24] MEDS: KCL 10 MEQ IVPB 10 MEQ/100 ML INFUS.BAG IVPB SCH ×3 (14:40→16:45)
[2022-03-24] MEDS: CHLORHEXIDINE GLUCONATE 4% CLEANSER FOR DECOLONIZATION TP SCH (21:00)
[2022-03-25] MEDS ORDERED: DEXTROSE 5%-WATER - 50 ML IVPB ONE ×4 (00:29→23:26)
[2022-03-25] MEDS ORDERED: PIPERACILLIN/TAZOBACTAM 3.375 GM VIAL IVPB ONE ×4 (00:29→23:26)
[2022-03-25] MEDS: PROPOFOL 1,000,000 MCG/100 ML VIAL IVPB SCH (01:01)
[2022-03-25] MEDS: PIPERACILLIN/TAZOB 3.375 GM 3.375 GM in DEXTROSE 5%-WATER - 50 ML IVPB SCH ×3 (01:02→17:05)
[2022-03-25] MEDS: VANCOMYCIN 1 GRAM (PRE-DOCKED) 1,000 MG/250 ML BAG IVPB SCH ×2 (01:02→13:35)
[2022-03-25] MEDS: LACTULOSE 20 GM/30 ML UDC (FOR ORAL USE ONLY) NGT SCH ×3 (06:26→21:32)
[2022-03-25 06:57] LABS: HEMATOCRIT 33.7 % (35.4-49); HEMOGLOBIN 10.9 GM/dL (11.7-16.9); MCH 28.8 pg (25.7-33.7); MCHC 32.4 g/dl (32.0-35.9); MEAN PLT VOLUME 9.5 fl (7.5-11.1); PLATELET COUNT 474 10^3/uL (134-434); RBC 3.79 M/mm3 (4.00-5.60); RDW 13.8 % (11.9-15.9)
[2022-03-25 07:03] LABS: CALCIUM 8.7 mg/dL (8.5-10.1)
[2022-03-25 07:04] LABS: ALBUMIN 2.1 g/dl (3.4-5.0); BLOOD UREA NITROGEN 26.6 mg/dL (7-18); MAGNESIUM 2.6 mg/dL (1.8-2.4)
[2022-03-25 07:07] LABS: CREATININE 1.1 mg/dL (0.55-1.3); PHOSPHOROUS 2.5 mg/dL (2.5-4.9)
[2022-03-25 07:09] LABS: BILIRUBIN,TOTAL 0.3 mg/dL (0.2-1)
[2022-03-25 07:13] LABS: WHITE BLOOD COUNT 32.2 K/mm3 (4.0-10.0)
[2022-03-25] MEDS: MUPIROCIN 2% TOPICAL OINTMENT FOR DECOLONIZATION NS SCH ×2 (09:24→21:32)
[2022-03-25] MEDS: levETIRAcetam 500 MG/5 ML INJECTION VIAL IVPB SCH ×2 (09:24→21:32)
[2022-03-25] MEDS: ASPIRIN COATED 81 MG TABLET.EC PO SCH (09:24)
[2022-03-25] MEDS: THIAMINE HCL 200 MG/2 ML VIAL IVPB SCH ×2 (09:25→21:37)
[2022-03-25] MEDS: PANTOPRAZOLE SODIUM 40 MG VIAL IVPUSH SCH (09:25)
[2022-03-25] MEDS: ENOXAPARIN NA (PORCINE) 40 MG/0.4 ML DISP.SYRIN SQ SCH (09:36)
[2022-03-25 11:41] LABS: EPI CELLS 30 /uL (0-25.1); HYALINE CASTS 5 /uL (0-3.1); URINE APPEARANCE CLEAR; URINE BACTERIA 12 /uL (0-1359); URINE BILIRUBIN NEGATIVE (NEGATIVE); URINE COLOR YELLOW; URINE GLUCOSE (UA) NEGATIVE (NEGATIVE); URINE KETONE TRACE (NEGATIVE); URINE LEUK ESTERASE NEGATIVE (NEGATIVE); URINE NITRITE NEGATIVE (NEGATIVE); URINE PROTEIN 2+ (NEGATIVE); URINE RBC 11 /uL (0-23.9); URINE UROBILINOGEN 0.2 mg/dL (0.2-1.0); URINE WBC 14 /uL (0-25.8)
[2022-03-25 11:56] LABS: ANISOCYTOSIS 0; MACROCYTOSIS 0
[2022-03-25] MEDS ORDERED: LABETALOL HCL 5 MG/1 ML (100MG/20 ML VIAL) IVPUSH PRN (12:27)
[2022-03-25] MEDS ORDERED: METOPROLOL TARTRATE 5 MG/5 ML VIAL IVPUSH ONE (12:29)
[2022-03-25] MEDS: DEXMEDETOMIDINE IN 0.9 % NACL 400 MCG/100 ML VIAL IVPB SCH (12:30)
[2022-03-25] MEDS ORDERED: SCOPOLAMINE HYDROBROMIDE 1 PATCH PATCH.TD72 TD SCH (16:15)
[2022-03-25] MEDS: ENALAPRILAT DIHYDRATE 1.25 MG/1 ML VIAL IVPB SCH ×2 (16:28→22:20)
[2022-03-25] MEDS ORDERED: ACETAMINOPHEN INJECTION 100 ML IVPB ONE (16:39)
[2022-03-25] MEDS: ACETAMINOPHEN 1000 MG/100 ML BAG IVPB PRN ×2 (16:42→21:49)
[2022-03-25] MEDS ORDERED: hydrALAZINE HCL 20 MG/ML VIAL IVPUSH PRN (16:55)
[2022-03-25 17:42] LABS: ARTERIAL BLD GAS O2 SATURATION 90.2 % (95-98); ARTERIAL BLOOD GAS BASE EXCESS -2.6 mmol/L (-2-2); ARTERIAL BLOOD GAS PO2 50.4 mmHg (80-100)
[2022-03-25] MEDS ORDERED: ACETYLCYSTEINE 20% 200MG/ML 30 ML VIAL *FOR ORAL / INH USE ONLY NEB ONE (18:09)
[2022-03-25] MEDS ORDERED: ALBUTEROL SO4 0.083% IH SOL 2.5 MG/3 ML VIAL.NEB. NEB ONE (18:28)
[2022-03-25] MEDS ORDERED: METOPROLOL TARTRATE 5 MG/5 ML VIAL IVPUSH PRN ×2 (18:41→22:34)
[2022-03-25] MEDS: CHLORHEXIDINE GLUCONATE 4% CLEANSER FOR DECOLONIZATION TP SCH (21:32)
[2022-03-26] MEDS: PROPOFOL 1,000,000 MCG/100 ML VIAL IVPB SCH (00:22)
[2022-03-26] MEDS: VANCOMYCIN 1 GRAM (PRE-DOCKED) 1,000 MG/250 ML BAG IVPB SCH ×2 (00:30→13:19)
[2022-03-26] MEDS: PIPERACILLIN/TAZOB 3.375 GM 3.375 GM in DEXTROSE 5%-WATER - 50 ML IVPB SCH ×3 (02:40→17:56)
[2022-03-26] MEDS: hydrALAZINE HCL 20 MG/ML VIAL IVPUSH PRN ×3 (03:00→18:23)
[2022-03-26] MEDS: LACTULOSE 20 GM/30 ML UDC (FOR ORAL USE ONLY) NGT SCH ×3 (05:03→21:34)
[2022-03-26] MEDS ORDERED: LABETALOL HCL 5 MG/1 ML (100MG/20 ML VIAL) IVPUSH ONE (06:50)
[2022-03-26] MEDS: ALBUTEROL SO4 2.5/IPRATROPIUM 0.5 INH SOL 3 ML VIAL.NEB. NEB SCH ×4 (07:25→20:20)
[2022-03-26] MEDS ORDERED: PIPERACILLIN/TAZOBACTAM 3.375 GM VIAL IVPB ONE ×3 (09:13→22:03)
[2022-03-26] MEDS ORDERED: DEXTROSE 5%-WATER - 50 ML IVPB ONE ×3 (09:14→22:03)
[2022-03-26] MEDS: levETIRAcetam 500 MG/5 ML INJECTION VIAL IVPB SCH ×2 (09:15→23:13)
[2022-03-26] MEDS: ENOXAPARIN NA (PORCINE) 40 MG/0.4 ML DISP.SYRIN SQ SCH (09:15)
[2022-03-26] MEDS: THIAMINE HCL 200 MG/2 ML VIAL IVPB SCH ×2 (09:18→23:13)
[2022-03-26] MEDS: PANTOPRAZOLE SODIUM 40 MG VIAL IVPUSH SCH (09:20)
[2022-03-26] MEDS: MUPIROCIN 2% TOPICAL OINTMENT FOR DECOLONIZATION NS SCH ×2 (09:21→21:34)
[2022-03-26] MEDS: cloNIDine HCL 0.1 MG TABLET NGT SCH ×2 (10:00→21:34)
[2022-03-26] MEDS ORDERED: cloNIDine HCL 0.1 MG TABLET PO SCH (10:00)
[2022-03-26] MEDS: ASPIRIN COATED 81 MG TABLET.EC PO SCH (10:00)
[2022-03-26 13:57] LABS: HEMATOCRIT 36.5 % (35.4-49); HEMOGLOBIN 11.9 GM/dL (11.7-16.9); MCH 28.8 pg (25.7-33.7); MCHC 32.5 g/dl (32.0-35.9); MEAN CELL VOLUME 88.6 fl (80-96); MEAN PLT VOLUME 8.8 fl (7.5-11.1); PLATELET COUNT 410 10^3/uL (134-434); RBC 4.12 M/mm3 (4.00-5.60); RDW 13.7 % (11.9-15.9); WHITE BLOOD COUNT 21.9 K/mm3 (4.0-10.0)
[2022-03-26 14:26] LABS: ALBUMIN 2.2 g/dl (3.4-5.0); CALCIUM 9.1 mg/dL (8.5-10.1); MAGNESIUM 2.2 mg/dL (1.8-2.4)
[2022-03-26 14:28] LABS: BLOOD UREA NITROGEN 18.4 mg/dL (7-18)
[2022-03-26 14:29] LABS: CREATININE 0.8 mg/dL (0.55-1.3); PHOSPHOROUS 3.5 mg/dL (2.5-4.9)
[2022-03-26 14:31] LABS: TOT PROT 6.8 g/dl (6.4-8.2)
[2022-03-26 14:33] LABS: LACTIC ACID 2.4 mmol/L (0.4-2.0)
[2022-03-26 14:54] LABS: ANISOCYTOSIS 0; MACROCYTOSIS 0; PLATELET ESTIMATE NORMAL
[2022-03-26] MEDS: CHLORHEXIDINE GLUCONATE 4% CLEANSER FOR DECOLONIZATION TP SCH (21:34)
[2022-03-27] MEDS: VANCOMYCIN 1 GRAM (PRE-DOCKED) 1,000 MG/250 ML BAG IVPB SCH ×2 (03:11→13:14)
[2022-03-27] MEDS: PIPERACILLIN/TAZOB 3.375 GM 3.375 GM in DEXTROSE 5%-WATER - 50 ML IVPB SCH ×5 (03:11→17:45)
[2022-03-27] MEDS: LACTULOSE 20 GM/30 ML UDC (FOR ORAL USE ONLY) NGT SCH ×3 (05:08→21:37)
[2022-03-27 07:35] LABS: HEMATOCRIT 32.2 % (35.4-49); HEMOGLOBIN 10.7 GM/dL (11.7-16.9); MCH 28.9 pg (25.7-33.7); MCHC 33.1 g/dl (32.0-35.9); MEAN CELL VOLUME 87.2 fl (80-96); MEAN PLT VOLUME 8.7 fl (7.5-11.1); PLATELET COUNT 455 10^3/uL (134-434); RBC 3.69 M/mm3 (4.00-5.60); RDW 13.5 % (11.9-15.9); WHITE BLOOD COUNT 19.7 K/mm3 (4.0-10.0)
[2022-03-27 08:00] LABS: CALCIUM 8.9 mg/dL (8.5-10.1)
[2022-03-27 08:01] LABS: ALBUMIN 2.2 g/dl (3.4-5.0); BLOOD UREA NITROGEN 19.7 mg/dL (7-18); MAGNESIUM 2.2 mg/dL (1.8-2.4)
[2022-03-27 08:04] LABS: CREATININE 0.8 mg/dL (0.55-1.3); PHOSPHOROUS 3.4 mg/dL (2.5-4.9)
[2022-03-27 08:05] LABS: BILIRUBIN,TOTAL 0.4 mg/dL (0.2-1); TOT PROT 6.8 g/dl (6.4-8.2)
[2022-03-27] MEDS: hydrALAZINE HCL 20 MG/ML VIAL IVPUSH PRN (08:23)
[2022-03-27] MEDS: ALBUTEROL SO4 2.5/IPRATROPIUM 0.5 INH SOL 3 ML VIAL.NEB. NEB SCH ×4 (09:03→21:33)
[2022-03-27] MEDS ORDERED: PIPERACILLIN/TAZOBACTAM 3.375 GM VIAL IVPB ONE ×2 (09:12→17:44)
[2022-03-27] MEDS ORDERED: DEXTROSE 5%-WATER - 50 ML IVPB ONE ×2 (09:12→17:44)
[2022-03-27] MEDS: PANTOPRAZOLE SODIUM 40 MG VIAL IVPUSH SCH (09:15)
[2022-03-27] MEDS: levETIRAcetam 500 MG/5 ML INJECTION VIAL IVPB SCH (09:17)
[2022-03-27] MEDS: ENOXAPARIN NA (PORCINE) 40 MG/0.4 ML DISP.SYRIN SQ SCH (09:22)
[2022-03-27] MEDS: THIAMINE HCL 200 MG/2 ML VIAL IVPB SCH ×2 (09:28→21:38)
[2022-03-27] MEDS: cloNIDine HCL 0.1 MG TABLET NGT SCH ×2 (09:28→21:37)
[2022-03-27] MEDS: ASPIRIN COATED 81 MG TABLET.EC PO SCH (09:28)
[2022-03-27] MEDS: CHLORHEXIDINE GLUCONATE 4% CLEANSER FOR DECOLONIZATION TP SCH (21:37)
[2022-03-28] MEDS ORDERED: DEXTROSE 5%-WATER - 50 ML IVPB ONE ×4 (01:01→23:18)
[2022-03-28] MEDS ORDERED: PIPERACILLIN/TAZOBACTAM 3.375 GM VIAL IVPB ONE ×4 (01:01→23:17)
[2022-03-28] MEDS: PIPERACILLIN/TAZOB 3.375 GM 3.375 GM in DEXTROSE 5%-WATER - 50 ML IVPB SCH ×3 (01:08→18:20)
[2022-03-28] MEDS: LACTULOSE 20 GM/30 ML UDC (FOR ORAL USE ONLY) NGT SCH ×3 (05:46→20:59)
[2022-03-28] MEDS: hydrALAZINE HCL 20 MG/ML VIAL IVPUSH PRN ×2 (06:01→16:59)
[2022-03-28] MEDS: ALBUTEROL SO4 2.5/IPRATROPIUM 0.5 INH SOL 3 ML VIAL.NEB. NEB SCH ×4 (07:40→20:23)
[2022-03-28 08:08] LABS: BASO % 1.3 % (0-2.0); HEMATOCRIT 34.7 % (35.4-49); HEMOGLOBIN 11.6 GM/dL (11.7-16.9); LYMPH % 10.8 % (8-40); MCH 29.4 pg (25.7-33.7); MCHC 33.3 g/dl (32.0-35.9); MEAN CELL VOLUME 88.3 fl (80-96); MEAN PLT VOLUME 9.1 fl (7.5-11.1); MONO % 8.3 % (3.8-10.2); NEUT % 77.6 % (42.8-82.8); PLATELET COUNT 474 10^3/uL (134-434); RBC 3.93 M/mm3 (4.00-5.60); RDW 13.6 % (11.9-15.9)
[2022-03-28 09:03] LABS: ALBUMIN 2.4 g/dl (3.4-5.0); CALCIUM 9.5 mg/dL (8.5-10.1); MAGNESIUM 2.4 mg/dL (1.8-2.4)
[2022-03-28 09:06] LABS: BLOOD UREA NITROGEN 21.3 mg/dL (7-18); PHOSPHOROUS 3.6 mg/dL (2.5-4.9)
[2022-03-28 09:07] LABS: TOT PROT 7.5 g/dl (6.4-8.2)
[2022-03-28 09:08] LABS: BILIRUBIN,TOTAL 0.3 mg/dL (0.2-1)
[2022-03-28] MEDS: THIAMINE HCL 200 MG/2 ML VIAL IVPB SCH ×2 (09:13→20:59)
[2022-03-28] MEDS: ASPIRIN COATED 81 MG TABLET.EC PO SCH (09:23)
[2022-03-28] MEDS: ENOXAPARIN NA (PORCINE) 40 MG/0.4 ML DISP.SYRIN SQ SCH (09:23)
[2022-03-28] MEDS: PANTOPRAZOLE SODIUM 40 MG VIAL IVPUSH SCH (09:23)
[2022-03-28] MEDS: cloNIDine HCL 0.1 MG TABLET NGT SCH ×2 (09:25→20:59)
[2022-03-28] MEDS ORDERED: ACETAMINOPHEN 1000 MG/100 ML BAG IVPB ONE (20:11)
[2022-03-28] MEDS: CHLORHEXIDINE GLUCONATE 4% CLEANSER FOR DECOLONIZATION TP SCH (20:59)
[2022-03-29] MEDS: PIPERACILLIN/TAZOB 3.375 GM 3.375 GM in DEXTROSE 5%-WATER - 50 ML IVPB SCH ×3 (03:00→18:49)
[2022-03-29] MEDS: LACTULOSE 20 GM/30 ML UDC (FOR ORAL USE ONLY) NGT SCH ×2 (05:19→14:21)
[2022-03-29] MEDS: hydrALAZINE HCL 20 MG/ML VIAL IVPUSH PRN ×2 (06:38→18:49)
[2022-03-29] MEDS: ALBUTEROL SO4 2.5/IPRATROPIUM 0.5 INH SOL 3 ML VIAL.NEB. NEB SCH ×4 (08:04→20:16)
[2022-03-29] MEDS ORDERED: DEXTROSE 5%-WATER - 50 ML IVPB ONE ×2 (09:14→18:45)
[2022-03-29] MEDS ORDERED: PIPERACILLIN/TAZOBACTAM 3.375 GM VIAL IVPB ONE ×2 (09:14→18:45)
[2022-03-29] MEDS: PANTOPRAZOLE SODIUM 40 MG VIAL IVPUSH SCH (09:19)
[2022-03-29] MEDS: THIAMINE HCL 200 MG/2 ML VIAL IVPB SCH ×2 (09:21→22:18)
[2022-03-29] MEDS: cloNIDine HCL 0.1 MG TABLET NGT SCH (09:24)
[2022-03-29] MEDS: ENOXAPARIN NA (PORCINE) 40 MG/0.4 ML DISP.SYRIN SQ SCH (09:24)
[2022-03-29] MEDS: ASPIRIN COATED 81 MG TABLET.EC PO SCH (09:24)
[2022-03-29 10:28] LABS: BASO % 0.5 % (0-2.0); EOS % 2.6 % (0-4.5); HEMATOCRIT 31.9 % (35.4-49); HEMOGLOBIN 10.7 GM/dL (11.7-16.9); LYMPH % 9.9 % (8-40); MCH 29.2 pg (25.7-33.7); MCHC 33.5 g/dl (32.0-35.9); MEAN CELL VOLUME 87.2 fl (80-96); MEAN PLT VOLUME 8.1 fl (7.5-11.1); MONO % 7.7 % (3.8-10.2); NEUT % 79.3 % (42.8-82.8); PLATELET COUNT 475 10^3/uL (134-434); RBC 3.66 M/mm3 (4.00-5.60); RDW 13.8 % (11.9-15.9); WHITE BLOOD COUNT 18.8 K/mm3 (4.0-10.0)
[2022-03-29 11:01] LABS: ALBUMIN 2.2 g/dl (3.4-5.0); BLOOD UREA NITROGEN 22.4 mg/dL (7-18); CALCIUM 9.1 mg/dL (8.5-10.1); MAGNESIUM 2.3 mg/dL (1.8-2.4)
[2022-03-29 11:04] LABS: CREATININE 1.1 mg/dL (0.55-1.3); PHOSPHOROUS 3.2 mg/dL (2.5-4.9)
[2022-03-29 11:05] LABS: TOT PROT 6.8 g/dl (6.4-8.2)
[2022-03-29 11:06] LABS: BILIRUBIN,TOTAL 0.3 mg/dL (0.2-1)
[2022-03-29] MEDS ORDERED: chlordiazePOXIDE 5 MG CAPSULE PO PRN ×2 (12:08→13:07)
[2022-03-29] MEDS: KCL 10 MEQ IVPB 10 MEQ/100 ML INFUS.BAG IVPB SCH ×3 (14:18→15:44)
[2022-03-29] MEDS: levETIRAcetam 500 MG TABLET (FP) PO SCH (14:20)
[2022-03-29] MEDS: amLODIPine BESYLATE 10 MG TABLET (FP) PO SCH (14:20)
[2022-03-29] MEDS: FOLIC ACID 1 MG TABLET (FP) PO SCH (14:20)
[2022-03-29] MEDS: SODIUM CHLORIDE 0.45%/POT 20 MEQ/1,000 ML INFUS.BAG IV SCH (14:50)
[2022-03-30] MEDS: CHLORHEXIDINE GLUCONATE 4% CLEANSER FOR DECOLONIZATION TP SCH ×2 (01:01→22:28)
[2022-03-30] MEDS: levETIRAcetam 500 MG TABLET (FP) PO SCH ×2 (01:01→10:00)
[2022-03-30] MEDS: LACTULOSE 20 GM/30 ML UDC (FOR ORAL USE ONLY) NGT SCH ×4 (01:02→22:28)
[2022-03-30] MEDS: cloNIDine HCL 0.1 MG TABLET NGT SCH ×2 (01:02→09:58)
[2022-03-30] MEDS ORDERED: PIPERACILLIN/TAZOBACTAM 3.375 GM VIAL IVPB ONE ×2 (01:03→09:27)
[2022-03-30] MEDS ORDERED: DEXTROSE 5%-WATER - 50 ML IVPB ONE ×2 (01:03→09:27)
[2022-03-30] MEDS: PIPERACILLIN/TAZOB 3.375 GM 3.375 GM in DEXTROSE 5%-WATER - 50 ML IVPB SCH ×2 (01:07→09:33)
[2022-03-30] MEDS: hydrALAZINE HCL 20 MG/ML VIAL IVPUSH PRN (06:21)
[2022-03-30 07:05] LABS: HEMATOCRIT 33.7 % (35.4-49); MCH 28.6 pg (25.7-33.7); MCHC 32.8 g/dl (32.0-35.9); MEAN CELL VOLUME 87.4 fl (80-96); MEAN PLT VOLUME 8.4 fl (7.5-11.1); PLATELET COUNT 501 10^3/uL (134-434); RBC 3.86 M/mm3 (4.00-5.60); RDW 14.1 % (11.9-15.9); WHITE BLOOD COUNT 16.1 K/mm3 (4.0-10.0)
[2022-03-30 07:29] LABS: CALCIUM 9.3 mg/dL (8.5-10.1)
[2022-03-30 07:30] LABS: ALBUMIN 2.4 g/dl (3.4-5.0); BLOOD UREA NITROGEN 19.7 mg/dL (7-18)
[2022-03-30 07:33] LABS: CREATININE 1.2 mg/dL (0.55-1.3)
[2022-03-30 07:35] LABS: BILIRUBIN,TOTAL 0.2 mg/dL (0.2-1); TOT PROT 7.1 g/dl (6.4-8.2)
[2022-03-30] MEDS: ALBUTEROL SO4 2.5/IPRATROPIUM 0.5 INH SOL 3 ML VIAL.NEB. NEB SCH ×4 (08:20→20:36)
[2022-03-30] MEDS: ENOXAPARIN NA (PORCINE) 40 MG/0.4 ML DISP.SYRIN SQ SCH (09:34)
[2022-03-30] MEDS: amLODIPine BESYLATE 10 MG TABLET (FP) PO SCH (09:58)
[2022-03-30] MEDS: FOLIC ACID 1 MG TABLET (FP) PO SCH (09:58)
[2022-03-30] MEDS: LABETALOL HCL 200 MG TABLET (FP) NGT SCH ×2 (09:58→22:27)
[2022-03-30] MEDS: THIAMINE HCL 200 MG/2 ML VIAL IVPB SCH ×2 (09:58→22:28)
[2022-03-30] MEDS: ASPIRIN COATED 81 MG TABLET.EC PO SCH (10:00)
[2022-03-30] MEDS: PANTOPRAZOLE SODIUM 40 MG VIAL IVPUSH SCH (10:29)
[2022-03-30] MEDS: SODIUM CHLORIDE 0.45%/POT 20 MEQ/1,000 ML INFUS.BAG IV SCH (11:15)
[2022-03-30] MEDS: CEFTRIAXONE 2 GM in DEXTROSE 5%-WATER 100 ML IVPB SCH (12:00)
[2022-03-30] MEDS ORDERED: DEXTROSE 5%-WATER 100 ML IVPB ONE (14:43)
[2022-03-30] MEDS ORDERED: BENZOCAINE/MENTHOL 1 EACH LOZENGE MM PRN (18:00)
[2022-03-30] MEDS ORDERED: ACETAMINOPHEN 1000 MG/100 ML BAG IVPB PRN (18:06)
[2022-03-30] MEDS: levETIRAcetam 500 MG/5 ML ORAL SOLUTION (UNIT-DOSE CUPS) NGT SCH ×2 (18:15→22:28)
[2022-03-31] MEDS: SODIUM CHLORIDE 0.45%/POT 20 MEQ/1,000 ML INFUS.BAG IV SCH ×3 (01:16→12:30)
[2022-03-31] MEDS: LACTULOSE 20 GM/30 ML UDC (FOR ORAL USE ONLY) NGT SCH ×4 (06:07→21:46)
[2022-03-31 06:43] LABS: HEMATOCRIT 32.7 % (35.4-49); HEMOGLOBIN 10.6 GM/dL (11.7-16.9); MCH 28.9 pg (25.7-33.7); MCHC 32.5 g/dl (32.0-35.9); MEAN CELL VOLUME 88.7 fl (80-96); MEAN PLT VOLUME 8.5 fl (7.5-11.1); PLATELET COUNT 476 10^3/uL (134-434); RBC 3.68 M/mm3 (4.00-5.60); WHITE BLOOD COUNT 13.9 K/mm3 (4.0-10.0)
[2022-03-31 07:12] LABS: ALBUMIN 2.2 g/dl (3.4-5.0); CALCIUM 8.9 mg/dL (8.5-10.1)
[2022-03-31 07:13] LABS: BLOOD UREA NITROGEN 19.8 mg/dL (7-18)
[2022-03-31 07:16] LABS: CREATININE 1.1 mg/dL (0.55-1.3)
[2022-03-31 07:17] LABS: BILIRUBIN,TOTAL 0.2 mg/dL (0.2-1); TOT PROT 6.6 g/dl (6.4-8.2)
[2022-03-31] MEDS ORDERED: POTASSIUM CHLORIDE ORAL LIQUID 20 MEQ/15 ML NGT ONE (07:45)
[2022-03-31] MEDS: ALBUTEROL SO4 2.5/IPRATROPIUM 0.5 INH SOL 3 ML VIAL.NEB. NEB SCH ×4 (08:00→20:24)
[2022-03-31] MEDS ORDERED: DEXTROSE 5%-WATER 100 ML IVPB ONE (09:09)
[2022-03-31] MEDS: CEFTRIAXONE 2 GM in DEXTROSE 5%-WATER 100 ML IVPB SCH (09:32)
[2022-03-31] MEDS: cloNIDine HCL 0.1 MG TABLET NGT SCH (09:33)
[2022-03-31] MEDS: amLODIPine BESYLATE 10 MG TABLET (FP) PO SCH (09:33)
[2022-03-31] MEDS: ENOXAPARIN NA (PORCINE) 40 MG/0.4 ML DISP.SYRIN SQ SCH (09:33)
[2022-03-31] MEDS: ASPIRIN 81 MG CHEWABLE TABLETS NGT SCH (09:33)
[2022-03-31] MEDS: LABETALOL HCL 200 MG TABLET (FP) NGT SCH (09:33)
[2022-03-31] MEDS: FOLIC ACID 1 MG TABLET (FP) PO SCH (09:33)
[2022-03-31] MEDS: PANTOPRAZOLE SODIUM 40 MG VIAL IVPUSH SCH (09:34)
[2022-03-31] MEDS: THIAMINE HCL 200 MG/2 ML VIAL IVPB SCH ×2 (09:36→21:46)
[2022-03-31] MEDS: levETIRAcetam 500 MG/5 ML ORAL SOLUTION (UNIT-DOSE CUPS) NGT SCH ×2 (11:52→21:46)
[2022-03-31] MEDS ORDERED: LORazepam 2 MG/ML SDV VIAL IVPUSH ONE (20:14)
[2022-03-31] MEDS: LABETALOL HCL 100 MG TABLET (FP) NGT SCH (21:46)
[2022-03-31] MEDS: CHLORHEXIDINE GLUCONATE 4% CLEANSER FOR DECOLONIZATION TP SCH (21:46)
[2022-03-31] MEDS: NICOTINE 21 MG/24 HOURS TOPICAL PATCH TD SCH (21:52)
[2022-04-01] MEDS: SODIUM CHLORIDE 0.45%/POT 20 MEQ/1,000 ML INFUS.BAG IV SCH ×4 (03:29→23:21)
[2022-04-01] MEDS: LACTULOSE 20 GM/30 ML UDC (FOR ORAL USE ONLY) NGT SCH ×2 (05:10→15:02)
[2022-04-01] MEDS: ALBUTEROL SO4 2.5/IPRATROPIUM 0.5 INH SOL 3 ML VIAL.NEB. NEB SCH ×4 (08:00→19:45)
[2022-04-01] MEDS ORDERED: DEXTROSE 5%-WATER 100 ML IVPB ONE (10:47)
[2022-04-01] MEDS: CEFTRIAXONE 2 GM in DEXTROSE 5%-WATER 100 ML IVPB SCH (11:00)
[2022-04-01] MEDS: ENOXAPARIN NA (PORCINE) 40 MG/0.4 ML DISP.SYRIN SQ SCH (11:00)
[2022-04-01] MEDS: amLODIPine BESYLATE 10 MG TABLET (FP) NGT SCH (11:01)
[2022-04-01] MEDS: ASPIRIN 81 MG CHEWABLE TABLETS NGT SCH (11:01)
[2022-04-01] MEDS: LABETALOL HCL 100 MG TABLET (FP) NGT SCH (11:01)
[2022-04-01] MEDS: FOLIC ACID 1 MG TABLET (FP) NGT SCH (11:01)
[2022-04-01] MEDS: THIAMINE HCL 200 MG/2 ML VIAL IVPB SCH ×2 (11:02→23:19)
[2022-04-01] MEDS: cloNIDine HCL 0.1 MG TABLET NGT SCH (11:02)
[2022-04-01] MEDS: PANTOPRAZOLE SODIUM 40 MG VIAL IVPUSH SCH (11:03)
[2022-04-01] MEDS: NICOTINE 21 MG/24 HOURS TOPICAL PATCH TD SCH (11:04)
[2022-04-01] MEDS: levETIRAcetam 500 MG/5 ML ORAL SOLUTION (UNIT-DOSE CUPS) NGT SCH (11:24)
[2022-04-01 13:49] LABS: HEMATOCRIT 31.5 % (35.4-49); HEMOGLOBIN 10.2 GM/dL (11.7-16.9); MCH 28.6 pg (25.7-33.7); MCHC 32.3 g/dl (32.0-35.9); MEAN CELL VOLUME 88.6 fl (80-96); MEAN PLT VOLUME 8.9 fl (7.5-11.1); PLATELET COUNT 483 10^3/uL (134-434); RBC 3.56 M/mm3 (4.00-5.60); RDW 14.4 % (11.9-15.9); WHITE BLOOD COUNT 15.8 K/mm3 (4.0-10.0)
[2022-04-01 14:15] LABS: ALBUMIN 2.3 g/dl (3.4-5.0)
[2022-04-01 14:18] LABS: CREATININE 1.2 mg/dL (0.55-1.3); PHOSPHOROUS 3.1 mg/dL (2.5-4.9)
[2022-04-01 14:19] LABS: BILIRUBIN,TOTAL 0.2 mg/dL (0.2-1); TOT PROT 6.7 g/dl (6.4-8.2)
[2022-04-01] MEDS ORDERED: ALBUTEROL SO4 2.5/IPRATROPIUM 0.5 INH SOL 3 ML VIAL.NEB. NEB ONE (17:49)
[2022-04-01] MEDS ORDERED: SCOPOLAMINE HYDROBROMIDE 1 PATCH PATCH.TD72 TD SCH (18:00)
[2022-04-01] MEDS ORDERED: guaiFENesin 600 MG TABLET.ER (FP) PO SCH (22:00)
[2022-04-01] MEDS: levETIRAcetam 500 MG/5 ML INJECTION VIAL IVPB SCH (23:18)
[2022-04-01] MEDS: CHLORHEXIDINE GLUCONATE 4% CLEANSER FOR DECOLONIZATION TP SCH (23:19)
[2022-04-02] MEDS: hydrALAZINE HCL 20 MG/ML VIAL IVPUSH PRN (08:09)
[2022-04-02 08:36] LABS: HEMATOCRIT 33.8 % (35.4-49); MCH 28.4 pg (25.7-33.7); MCHC 32.5 g/dl (32.0-35.9); MEAN CELL VOLUME 87.5 fl (80-96); MEAN PLT VOLUME 8.8 fl (7.5-11.1); PLATELET COUNT 468 10^3/uL (134-434); RBC 3.86 M/mm3 (4.00-5.60); RDW 14.3 % (11.9-15.9); WHITE BLOOD COUNT 17.9 K/mm3 (4.0-10.0)
[2022-04-02] MEDS: ALBUTEROL SO4 2.5/IPRATROPIUM 0.5 INH SOL 3 ML VIAL.NEB. NEB SCH ×4 (08:37→20:05)
[2022-04-02 08:53] LABS: CALCIUM 9.3 mg/dL (8.5-10.1)
[2022-04-02 08:54] LABS: ALBUMIN 2.5 g/dl (3.4-5.0); BLOOD UREA NITROGEN 11.7 mg/dL (7-18); MAGNESIUM 1.8 mg/dL (1.8-2.4)
[2022-04-02 08:57] LABS: CREATININE 1.1 mg/dL (0.55-1.3)
[2022-04-02 08:59] LABS: BILIRUBIN,TOTAL 0.3 mg/dL (0.2-1); TOT PROT 7.3 g/dl (6.4-8.2)
[2022-04-02] MEDS: THIAMINE HCL 200 MG/2 ML VIAL IVPB SCH ×3 (11:15→23:33)
[2022-04-02] MEDS: levETIRAcetam 500 MG/5 ML INJECTION VIAL IVPB SCH ×2 (11:15→21:02)
[2022-04-02] MEDS: CEFTRIAXONE 2 GM in DEXTROSE 5%-WATER 100 ML IVPB SCH (11:15)
[2022-04-02] MEDS: PANTOPRAZOLE SODIUM 40 MG VIAL IVPUSH SCH (11:15)
[2022-04-02] MEDS: LABETALOL HCL 100 MG TABLET (FP) PO SCH ×2 (11:15→22:01)
[2022-04-02] MEDS: ENOXAPARIN NA (PORCINE) 40 MG/0.4 ML DISP.SYRIN SQ SCH (11:26)
[2022-04-02] MEDS: NICOTINE 21 MG/24 HOURS TOPICAL PATCH TD SCH (11:27)
[2022-04-02] MEDS ORDERED: CEFTRIAXONE 2 GM-D5W BAG 2 GM/50 ML BAG IVPB ONE (13:47)
[2022-04-02] MEDS ORDERED: levETIRAcetam 500 MG/5 ML INJECTION VIAL IVPB ONE (13:47)
[2022-04-02] MEDS ORDERED: PANTOPRAZOLE SODIUM 40 MG VIAL IVPUSH ONE (13:48)
[2022-04-02] MEDS ORDERED: DEXTROSE 5%-WATER 100 ML IVPB ONE (14:09)
[2022-04-02] MEDS: SODIUM CHLORIDE 0.45%/POT 20 MEQ/1,000 ML INFUS.BAG IV SCH (14:42)
[2022-04-02] MEDS ORDERED: CEFTRIAXONE 2 GM in DEXTROSE 5%-WATER 2 GM/50 ML BAG IVPB ONE (14:45)
[2022-04-02] MEDS: POTASSIUM CHLORIDE 20 MEQ in AMINO ACIDS 4.25%/D5W 1,000 ML IV SCH (20:43)
[2022-04-02] MEDS: CHLORHEXIDINE GLUCONATE 4% CLEANSER FOR DECOLONIZATION TP SCH (21:02)
[2022-04-02] MEDS: METOPROLOL TARTRATE 5 MG/5 ML VIAL IVPB PRN (22:02)
[2022-04-03] MEDS: METOPROLOL TARTRATE 5 MG/5 ML VIAL IVPB PRN (06:07)
[2022-04-03] MEDS: ALBUTEROL SO4 2.5/IPRATROPIUM 0.5 INH SOL 3 ML VIAL.NEB. NEB SCH ×4 (07:47→20:05)
[2022-04-03 08:18] LABS: BASO % 0.3 % (0-2.0); EOS % 4.5 % (0-4.5); HEMOGLOBIN 10.6 GM/dL (11.7-16.9); LYMPH % 18.2 % (8-40); MCH 28.9 pg (25.7-33.7); MCHC 33.1 g/dl (32.0-35.9); MEAN CELL VOLUME 87.4 fl (80-96); MONO % 6.2 % (3.8-10.2); NEUT % 70.8 % (42.8-82.8); PLATELET COUNT 424 10^3/uL (134-434); RBC 3.66 M/mm3 (4.00-5.60); RDW 14.2 % (11.9-15.9); WHITE BLOOD COUNT 10.8 K/mm3 (4.0-10.0)
[2022-04-03 08:39] LABS: CALCIUM 9.4 mg/dL (8.5-10.1)
[2022-04-03 08:40] LABS: ALBUMIN 2.5 g/dl (3.4-5.0); BLOOD UREA NITROGEN 11.2 mg/dL (7-18)
[2022-04-03 08:43] LABS: CREATININE 1.1 mg/dL (0.55-1.3)
[2022-04-03 08:44] LABS: TOT PROT 7.3 g/dl (6.4-8.2)
[2022-04-03 08:46] LABS: BILIRUBIN,TOTAL 0.4 mg/dL (0.2-1)
[2022-04-03] MEDS ORDERED: DEXTROSE 5%-WATER 100 ML IVPB ONE (09:38)
[2022-04-03] MEDS: ENOXAPARIN NA (PORCINE) 40 MG/0.4 ML DISP.SYRIN SQ SCH (09:55)
[2022-04-03] MEDS: CEFTRIAXONE 2 GM in DEXTROSE 5%-WATER 100 ML IVPB SCH (09:55)
[2022-04-03] MEDS: levETIRAcetam 500 MG/5 ML INJECTION VIAL IVPB SCH ×2 (09:56→21:56)
[2022-04-03] MEDS: hydrALAZINE HCL 20 MG/ML VIAL IVPUSH PRN (09:56)
[2022-04-03] MEDS: NICOTINE 21 MG/24 HOURS TOPICAL PATCH TD SCH (09:56)
[2022-04-03] MEDS: THIAMINE HCL 200 MG/2 ML VIAL IVPB SCH ×3 (09:56→22:49)
[2022-04-03] MEDS: LABETALOL HCL 100 MG TABLET (FP) PO SCH ×2 (09:57→22:10)
[2022-04-03] MEDS: PANTOPRAZOLE SODIUM 40 MG VIAL IVPUSH SCH (09:58)
[2022-04-03] MEDS: POTASSIUM CHLORIDE 20 MEQ in AMINO ACIDS 4.25%/D5W 1,000 ML IV SCH (17:05)
[2022-04-03] MEDS ORDERED: chlordiazePOXIDE HCL 25 MG CAPSULE PO PRN (17:43)
[2022-04-03] MEDS ORDERED: LORazepam 2 MG/ML SDV VIAL IVPUSH PRN (18:00)
[2022-04-03] MEDS ORDERED: LORazepam 2 MG/ML SDV VIAL IVPUSH ONE (18:15)
[2022-04-03] MEDS ORDERED: hydrALAZINE HCL 20 MG/ML VIAL IVPB PRN (22:23)
[2022-04-04] MEDS: POTASSIUM CHLORIDE 20 MEQ in AMINO ACIDS 4.25%/D5W 1,000 ML IV SCH ×2 (06:55→20:31)
[2022-04-04] MEDS: ALBUTEROL SO4 2.5/IPRATROPIUM 0.5 INH SOL 3 ML VIAL.NEB. NEB SCH ×4 (08:45→20:50)
[2022-04-04] MEDS ORDERED: DEXTROSE 5%-WATER 100 ML IVPB ONE (09:25)
[2022-04-04] MEDS: ENOXAPARIN NA (PORCINE) 40 MG/0.4 ML DISP.SYRIN SQ SCH (10:02)
[2022-04-04] MEDS: NICOTINE 21 MG/24 HOURS TOPICAL PATCH TD SCH (10:02)
[2022-04-04] MEDS: LABETALOL HCL 100 MG TABLET (FP) PO SCH (10:04)
[2022-04-04] MEDS: MULTIVITAMINS (DAILY MVI) TABLET (FP) PO SCH (10:05)
[2022-04-04] MEDS: PANTOPRAZOLE SODIUM 40 MG VIAL IVPUSH SCH (10:05)
[2022-04-04] MEDS: ASCORBIC ACID 500 MG TABLET (FP) PO SCH (10:05)
[2022-04-04] MEDS: CEFTRIAXONE 2 GM in DEXTROSE 5%-WATER 100 ML IVPB SCH (10:06)
[2022-04-04] MEDS: THIAMINE HCL 200 MG/2 ML VIAL IVPB SCH (12:16)
[2022-04-04] MEDS: levETIRAcetam 500 MG/5 ML INJECTION VIAL IVPB SCH ×2 (12:16→23:41)
[2022-04-04 13:46] LABS: BASO % 0.3 % (0-2.0); EOS % 5.1 % (0-4.5); HEMATOCRIT 32.9 % (35.4-49); HEMOGLOBIN 10.8 GM/dL (11.7-16.9); LYMPH % 24.3 % (8-40); MCH 28.5 pg (25.7-33.7); MCHC 32.8 g/dl (32.0-35.9); MEAN CELL VOLUME 86.9 fl (80-96); MEAN PLT VOLUME 8.9 fl (7.5-11.1); MONO % 5.9 % (3.8-10.2); NEUT % 64.4 % (42.8-82.8); PLATELET COUNT 430 10^3/uL (134-434); RBC 3.78 M/mm3 (4.00-5.60); RDW 14.4 % (11.9-15.9); WHITE BLOOD COUNT 9.7 K/mm3 (4.0-10.0)
[2022-04-04 14:21] LABS: ALBUMIN 2.6 g/dl (3.4-5.0); BLOOD UREA NITROGEN 13.5 mg/dL (7-18); CALCIUM 9.2 mg/dL (8.5-10.1); MAGNESIUM 1.4 mg/dL (1.8-2.4)
[2022-04-04 14:25] LABS: BILIRUBIN,TOTAL 0.2 mg/dL (0.2-1); TOT PROT 7.3 g/dl (6.4-8.2)
[2022-04-04] MEDS ORDERED: LABETALOL HCL 100 MG TABLET (FP) GT SCH (17:37)
[2022-04-04] MEDS: LACTULOSE 20 GM/30 ML UDC (FOR ORAL USE ONLY) NGT SCH (23:19)
[2022-04-04] MEDS ORDERED: LACTULOSE 20 GM/30 ML UDC (FOR ORAL USE ONLY) PO ONE (23:23)
[2022-04-04] MEDS ORDERED: LABETALOL HCL 100 MG TABLET (FP) PO ONE (23:24)
[2022-04-05] MEDS: THIAMINE HCL 200 MG/2 ML VIAL IVPB SCH ×3 (00:07→22:32)
[2022-04-05] MEDS: LACTULOSE 20 GM/30 ML UDC (FOR ORAL USE ONLY) PO SCH ×3 (05:51→22:31)
[2022-04-05] MEDS: ALBUTEROL SO4 2.5/IPRATROPIUM 0.5 INH SOL 3 ML VIAL.NEB. NEB SCH ×4 (08:30→20:35)
[2022-04-05 09:06] LABS: HEMATOCRIT 32.5 % (35.4-49); HEMOGLOBIN 10.6 GM/dL (11.7-16.9); MCH 28.3 pg (25.7-33.7); MCHC 32.5 g/dl (32.0-35.9); MEAN CELL VOLUME 87.3 fl (80-96); PLATELET COUNT 420 10^3/uL (134-434); RBC 3.72 M/mm3 (4.00-5.60); WHITE BLOOD COUNT 11.6 K/mm3 (4.0-10.0)
[2022-04-05] MEDS ORDERED: DEXTROSE 5%-WATER 100 ML IVPB ONE (09:17)
[2022-04-05] MEDS: levETIRAcetam 500 MG/5 ML INJECTION VIAL IVPB SCH (09:43)
[2022-04-05] MEDS: ASPIRIN 81 MG CHEWABLE TABLETS NGT SCH (09:54)
[2022-04-05] MEDS: ASCORBIC ACID 500 MG TABLET (FP) PO SCH (09:54)
[2022-04-05] MEDS: amLODIPine BESYLATE 10 MG TABLET (FP) NGT SCH (09:54)
[2022-04-05] MEDS: FOLIC ACID 1 MG TABLET (FP) NGT SCH (09:55)
[2022-04-05] MEDS: NICOTINE 21 MG/24 HOURS TOPICAL PATCH TD SCH (09:55)
[2022-04-05] MEDS: MULTIVITAMINS (DAILY MVI) TABLET (FP) PO SCH (09:55)
[2022-04-05] MEDS: LABETALOL HCL 100 MG TABLET (FP) PO SCH ×2 (09:55→22:31)
[2022-04-05] MEDS: ENOXAPARIN NA (PORCINE) 40 MG/0.4 ML DISP.SYRIN SQ SCH (09:56)
[2022-04-05] MEDS: PANTOPRAZOLE SODIUM 40 MG VIAL IVPUSH SCH (09:57)
[2022-04-05 10:00] LABS: BLOOD UREA NITROGEN 17.5 mg/dL (7-18); CALCIUM 9.4 mg/dL (8.5-10.1)
[2022-04-05] MEDS: CEFTRIAXONE 2 GM in DEXTROSE 5%-WATER 100 ML IVPB SCH (10:01)
[2022-04-05 10:02] LABS: ALBUMIN 2.7 g/dl (3.4-5.0); CREATININE 1.2 mg/dL (0.55-1.3); MAGNESIUM 1.5 mg/dL (1.8-2.4)
[2022-04-05 10:03] LABS: BILIRUBIN,TOTAL 0.1 mg/dL (0.2-1); TOT PROT 7.4 g/dl (6.4-8.2)
[2022-04-05] MEDS ORDERED: levETIRAcetam 500 MG/5 ML INJECTION VIAL IVPB SCH (11:25)
[2022-04-05] MEDS ORDERED: MAGNESIUM SULF 50% (8.12 MEQ/2 ML-1 GM VIAL) IVPB ONE (16:23)
[2022-04-05] MEDS: levETIRAcetam 250 MG TABLET PO SCH (22:31)
[2022-04-06] MEDS: LACTULOSE 20 GM/30 ML UDC (FOR ORAL USE ONLY) PO SCH (05:43)
[2022-04-06] MEDS: ALBUTEROL SO4 2.5/IPRATROPIUM 0.5 INH SOL 3 ML VIAL.NEB. NEB SCH ×4 (07:33→19:52)
[2022-04-06 08:59] LABS: HEMATOCRIT 31.4 % (35.4-49); HEMOGLOBIN 10.5 GM/dL (11.7-16.9); MCH 30.1 pg (25.7-33.7); MCHC 33.4 g/dl (32.0-35.9); MEAN CELL VOLUME 90.2 fl (80-96); MEAN PLT VOLUME 9.4 fl (7.5-11.1); PLATELET COUNT 344 10^3/uL (134-434); RBC 3.48 M/mm3 (4.00-5.60); RDW 14.3 % (11.9-15.9); WHITE BLOOD COUNT 7.7 K/mm3 (4.0-10.0)
[2022-04-06] MEDS ORDERED: DEXTROSE 5%-WATER 100 ML IVPB ONE (10:08)
[2022-04-06 10:14] LABS: BLOOD UREA NITROGEN 12.9 mg/dL (7-18); CALCIUM 8.8 mg/dL (8.5-10.1); MAGNESIUM 1.9 mg/dL (1.8-2.4)
[2022-04-06 10:16] LABS: CREATININE 1.2 mg/dL (0.55-1.3)
[2022-04-06] MEDS: CEFTRIAXONE 2 GM in DEXTROSE 5%-WATER 100 ML IVPB SCH (11:59)
[2022-04-06] MEDS: ENOXAPARIN NA (PORCINE) 40 MG/0.4 ML DISP.SYRIN SQ SCH (11:59)
[2022-04-06] MEDS: NICOTINE 21 MG/24 HOURS TOPICAL PATCH TD SCH (11:59)
[2022-04-06] MEDS: levETIRAcetam 250 MG TABLET PO SCH ×2 (12:00→21:38)
[2022-04-06] MEDS: ASCORBIC ACID 500 MG TABLET (FP) PO SCH (12:00)
[2022-04-06] MEDS: PANTOPRAZOLE SODIUM 40 MG VIAL IVPUSH SCH (12:00)
[2022-04-06] MEDS: LABETALOL HCL 100 MG TABLET (FP) PO SCH ×2 (12:00→21:38)
[2022-04-06] MEDS: ASPIRIN 81 MG CHEWABLE TABLETS NGT SCH (12:01)
[2022-04-06] MEDS: MULTIVITAMINS (DAILY MVI) TABLET (FP) PO SCH (12:01)
[2022-04-06] MEDS: amLODIPine BESYLATE 10 MG TABLET (FP) NGT SCH (12:01)
[2022-04-06] MEDS: FOLIC ACID 1 MG TABLET (FP) NGT SCH (12:01)
[2022-04-06] MEDS ORDERED: TAMSULOSIN HCL 0.4 MG CAP PO ONE (13:05)
[2022-04-06] MEDS: THIAMINE HCL 200 MG/2 ML VIAL IVPB SCH ×2 (16:09→21:39)
[2022-04-07] MEDS: ALBUTEROL SO4 2.5/IPRATROPIUM 0.5 INH SOL 3 ML VIAL.NEB. NEB SCH ×4 (08:30→19:52)
[2022-04-07] MEDS ORDERED: TAMSULOSIN HCL 0.4 MG CAP PO SCH (08:30)
[2022-04-07 09:40] LABS: HEMATOCRIT 30.5 % (35.4-49); HEMOGLOBIN 10.1 GM/dL (11.7-16.9); MCHC 33.2 g/dl (32.0-35.9); MEAN CELL VOLUME 87.3 fl (80-96); MEAN PLT VOLUME 9.1 fl (7.5-11.1); PLATELET COUNT 328 10^3/uL (134-434); RBC 3.49 M/mm3 (4.00-5.60); RDW 14.2 % (11.9-15.9); WHITE BLOOD COUNT 8.9 K/mm3 (4.0-10.0)
[2022-04-07 10:02] LABS: CALCIUM 8.8 mg/dL (8.5-10.1)
[2022-04-07 10:03] LABS: BLOOD UREA NITROGEN 10.2 mg/dL (7-18); MAGNESIUM 1.5 mg/dL (1.8-2.4)
[2022-04-07 10:05] LABS: PHOSPHOROUS 3.6 mg/dL (2.5-4.9)
[2022-04-07 10:06] LABS: CREATININE 1.1 mg/dL (0.55-1.3)
[2022-04-07] MEDS: LABETALOL HCL 200 MG TABLET (FP) PO SCH ×2 (11:22→21:16)
[2022-04-07] MEDS: levETIRAcetam 250 MG TABLET PO SCH ×2 (11:22→21:15)
[2022-04-07] MEDS: MULTIVITAMINS (DAILY MVI) TABLET (FP) PO SCH (11:22)
[2022-04-07] MEDS: FOLIC ACID 1 MG TABLET (FP) NGT SCH (11:22)
[2022-04-07] MEDS: THIAMINE HCL 200 MG/2 ML VIAL IVPB SCH ×2 (11:23→21:15)
[2022-04-07] MEDS: amLODIPine BESYLATE 10 MG TABLET (FP) NGT SCH (11:23)
[2022-04-07] MEDS: PANTOPRAZOLE 40 MG TABLET PO SCH (11:23)
[2022-04-07] MEDS: ASPIRIN COATED 81 MG TABLET.EC PO SCH (11:23)
[2022-04-07] MEDS: ASCORBIC ACID 500 MG TABLET (FP) PO SCH (11:23)
[2022-04-07] MEDS: ENOXAPARIN NA (PORCINE) 40 MG/0.4 ML DISP.SYRIN SQ SCH (11:24)
[2022-04-07] MEDS: NICOTINE 21 MG/24 HOURS TOPICAL PATCH TD SCH (11:24)
[2022-04-07] MEDS ORDERED: TAMSULOSIN HCL 0.4 MG CAP PO ONE (12:09)
[2022-04-07] MEDS: LACTOBACILLUS ACIDOPHILUS 1 TABLET PO SCH (13:10)
[2022-04-07] MEDS: BANATROL PLUS POWDER PACKET PO SCH ×2 (15:25→21:14)
[2022-04-07] MEDS ORDERED: MINERAL OIL/PETROLATUM,WHITE 3.5 GM TUBE OU PRN (20:25)
[2022-04-08] MEDS: BANATROL PLUS POWDER PACKET PO SCH ×3 (06:19→22:38)
[2022-04-08] MEDS ORDERED: LACTULOSE 20 GM/30 ML UDC (FOR ORAL USE ONLY) PO ONE (07:35)
[2022-04-08] MEDS: ALBUTEROL SO4 2.5/IPRATROPIUM 0.5 INH SOL 3 ML VIAL.NEB. NEB SCH ×4 (08:30→20:21)
[2022-04-08 09:02] LABS: HEMATOCRIT 30.4 % (35.4-49); HEMOGLOBIN 10.1 GM/dL (11.7-16.9); MCH 28.6 pg (25.7-33.7); MCHC 33.1 g/dl (32.0-35.9); MEAN CELL VOLUME 86.6 fl (80-96); MEAN PLT VOLUME 8.9 fl (7.5-11.1); PLATELET COUNT 320 10^3/uL (134-434); RBC 3.51 M/mm3 (4.00-5.60); WHITE BLOOD COUNT 8.6 K/mm3 (4.0-10.0)
[2022-04-08 09:14] LABS: ALBUMIN 2.4 g/dl (3.4-5.0); BLOOD UREA NITROGEN 8.8 mg/dL (7-18); MAGNESIUM 1.4 mg/dL (1.8-2.4)
[2022-04-08 09:17] LABS: CREATININE 1.1 mg/dL (0.55-1.3)
[2022-04-08 09:18] LABS: BILIRUBIN,TOTAL 0.4 mg/dL (0.2-1); TOT PROT 6.6 g/dl (6.4-8.2)
[2022-04-08] MEDS: ASCORBIC ACID 500 MG TABLET (FP) PO SCH (10:12)
[2022-04-08] MEDS: levETIRAcetam 250 MG TABLET PO SCH ×2 (10:12→22:39)
[2022-04-08] MEDS: amLODIPine BESYLATE 10 MG TABLET (FP) NGT SCH (10:12)
[2022-04-08] MEDS: LABETALOL HCL 200 MG TABLET (FP) PO SCH ×2 (10:12→22:39)
[2022-04-08] MEDS: ASPIRIN COATED 81 MG TABLET.EC PO SCH (10:12)
[2022-04-08] MEDS: FOLIC ACID 1 MG TABLET (FP) NGT SCH (10:12)
[2022-04-08] MEDS: MULTIVITAMINS (DAILY MVI) TABLET (FP) PO SCH (10:12)
[2022-04-08] MEDS: LACTOBACILLUS ACIDOPHILUS 1 TABLET PO SCH (10:12)
[2022-04-08] MEDS: TAMSULOSIN HCL 0.4 MG CAP PO SCH (10:13)
[2022-04-08] MEDS: PANTOPRAZOLE 40 MG TABLET PO SCH (10:13)
[2022-04-08] MEDS: NICOTINE 21 MG/24 HOURS TOPICAL PATCH TD SCH (10:13)
[2022-04-08] MEDS: ENOXAPARIN NA (PORCINE) 40 MG/0.4 ML DISP.SYRIN SQ SCH (10:14)
[2022-04-08] MEDS ORDERED: LACTULOSE 20 GM/30 ML UDC (FOR ORAL USE ONLY) PO PRN (15:00)
[2022-04-08] MEDS: THIAMINE HCL 200 MG/2 ML VIAL IVPB SCH (23:53)
[2022-04-09] MEDS: BANATROL PLUS POWDER PACKET PO SCH ×3 (05:50→22:00)
[2022-04-09] MEDS: ALBUTEROL SO4 2.5/IPRATROPIUM 0.5 INH SOL 3 ML VIAL.NEB. NEB SCH ×4 (07:35→20:04)
[2022-04-09 09:08] LABS: HEMATOCRIT 28.9 % (35.4-49); MCH 30.8 pg (25.7-33.7); MCHC 34.6 g/dl (32.0-35.9); MEAN CELL VOLUME 88.9 fl (80-96); PLATELET COUNT 314 10^3/uL (134-434); RBC 3.25 M/mm3 (4.00-5.60); RDW 14.4 % (11.9-15.9)
[2022-04-09] MEDS: ENOXAPARIN NA (PORCINE) 40 MG/0.4 ML DISP.SYRIN SQ SCH (09:10)
[2022-04-09] MEDS: THIAMINE HCL 200 MG/2 ML VIAL IVPB SCH ×3 (09:10→22:01)
[2022-04-09] MEDS: levETIRAcetam 250 MG TABLET PO SCH ×2 (09:11→22:01)
[2022-04-09] MEDS: LACTOBACILLUS ACIDOPHILUS 1 TABLET PO SCH (09:11)
[2022-04-09] MEDS: TAMSULOSIN HCL 0.4 MG CAP PO SCH (09:11)
[2022-04-09] MEDS: PANTOPRAZOLE 40 MG TABLET PO SCH (09:11)
[2022-04-09] MEDS: amLODIPine BESYLATE 10 MG TABLET (FP) NGT SCH (09:11)
[2022-04-09] MEDS: MULTIVITAMINS (DAILY MVI) TABLET (FP) PO SCH (09:11)
[2022-04-09] MEDS: FOLIC ACID 1 MG TABLET (FP) NGT SCH (09:11)
[2022-04-09] MEDS: LABETALOL HCL 200 MG TABLET (FP) PO SCH ×2 (09:12→22:00)
[2022-04-09] MEDS: NICOTINE 21 MG/24 HOURS TOPICAL PATCH TD SCH (09:12)
[2022-04-09] MEDS: ASCORBIC ACID 500 MG TABLET (FP) PO SCH (09:12)
[2022-04-09] MEDS: ASPIRIN COATED 81 MG TABLET.EC PO SCH (09:12)
[2022-04-09 09:32] LABS: BLOOD UREA NITROGEN 6.8 mg/dL (7-18); CALCIUM 8.7 mg/dL (8.5-10.1)
[2022-04-09 09:33] LABS: ALBUMIN 2.4 g/dl (3.4-5.0)
[2022-04-09 09:37] LABS: BILIRUBIN,TOTAL 0.3 mg/dL (0.2-1); TOT PROT 6.5 g/dl (6.4-8.2)
[2022-04-09 12:45] VITALS: BMI 23.0
[2022-04-09 15:01] LABS: MAGNESIUM 1.3 mg/dL (1.8-2.4)
[2022-04-09 15:05] LABS: PHOSPHOROUS 3.5 mg/dL (2.5-4.9)
[2022-04-10] MEDS: BANATROL PLUS POWDER PACKET PO SCH ×3 (05:35→22:09)
[2022-04-10] MEDS: ALBUTEROL SO4 2.5/IPRATROPIUM 0.5 INH SOL 3 ML VIAL.NEB. NEB SCH ×4 (08:43→19:50)
[2022-04-10] MEDS: TAMSULOSIN HCL 0.4 MG CAP PO SCH (09:08)
[2022-04-10] MEDS: MULTIVITAMINS (DAILY MVI) TABLET (FP) PO SCH (09:08)
[2022-04-10] MEDS: levETIRAcetam 250 MG TABLET PO SCH ×2 (09:08→22:08)
[2022-04-10] MEDS: ASCORBIC ACID 500 MG TABLET (FP) PO SCH (09:09)
[2022-04-10] MEDS: ASPIRIN COATED 81 MG TABLET.EC PO SCH (09:09)
[2022-04-10] MEDS: LABETALOL HCL 200 MG TABLET (FP) PO SCH ×2 (09:09→22:08)
[2022-04-10] MEDS: NICOTINE 21 MG/24 HOURS TOPICAL PATCH TD SCH (09:09)
[2022-04-10] MEDS: PANTOPRAZOLE 40 MG TABLET PO SCH (09:09)
[2022-04-10] MEDS: FOLIC ACID 1 MG TABLET (FP) NGT SCH (09:09)
[2022-04-10] MEDS: THIAMINE HCL 200 MG/2 ML VIAL IVPB SCH ×2 (09:09→22:09)
[2022-04-10] MEDS: LACTOBACILLUS ACIDOPHILUS 1 TABLET PO SCH ×2 (09:09→22:08)
[2022-04-10] MEDS: ENOXAPARIN NA (PORCINE) 40 MG/0.4 ML DISP.SYRIN SQ SCH (09:09)
[2022-04-10] MEDS: amLODIPine BESYLATE 10 MG TABLET (FP) NGT SCH (09:09)
[2022-04-10 09:32] LABS: HEMATOCRIT 32.4 % (35.4-49); HEMOGLOBIN 10.7 GM/dL (11.7-16.9); MCH 28.7 pg (25.7-33.7); MCHC 33.1 g/dl (32.0-35.9); MEAN CELL VOLUME 86.8 fl (80-96); MEAN PLT VOLUME 9.4 fl (7.5-11.1); PLATELET COUNT 363 10^3/uL (134-434); RBC 3.73 M/mm3 (4.00-5.60); RDW 14.3 % (11.9-15.9); WHITE BLOOD COUNT 8.8 K/mm3 (4.0-10.0)
[2022-04-10 09:56] LABS: ALBUMIN 2.6 g/dl (3.4-5.0)
[2022-04-10 09:57] LABS: BLOOD UREA NITROGEN 7.4 mg/dL (7-18)
[2022-04-10 09:59] LABS: CREATININE 1.1 mg/dL (0.55-1.3)
[2022-04-10 10:00] LABS: TOT PROT 7.3 g/dl (6.4-8.2)
[2022-04-10 10:01] LABS: BILIRUBIN,TOTAL 0.2 mg/dL (0.2-1)
[2022-04-10 11:03] LABS: MAGNESIUM 1.4 mg/dL (1.8-2.4)
[2022-04-10 11:07] LABS: PHOSPHOROUS 3.5 mg/dL (2.5-4.9)
[2022-04-10] MEDS: CHOLESTYRAMINE/ASPARTAME 4 GM PACKET PO SCH ×2 (11:30→22:08)
[2022-04-10] MEDS ORDERED: MAGNESIUM 1GM/D5W 100ML - 100 ML IVPB IVPB ONE (12:00)
[2022-04-10] MEDS ORDERED: MAGNESIUM OXIDE 400 MG TABLET (FP) PO ONE (16:03)
[2022-04-11] MEDS: BANATROL PLUS POWDER PACKET PO SCH ×3 (05:58→21:39)
[2022-04-11] MEDS: ALBUTEROL SO4 2.5/IPRATROPIUM 0.5 INH SOL 3 ML VIAL.NEB. NEB SCH ×4 (08:15→20:00)
[2022-04-11] MEDS: ASPIRIN COATED 81 MG TABLET.EC PO SCH (09:20)
[2022-04-11] MEDS: PANTOPRAZOLE 40 MG TABLET PO SCH (09:20)
[2022-04-11] MEDS: amLODIPine BESYLATE 10 MG TABLET (FP) NGT SCH (09:20)
[2022-04-11] MEDS: ASCORBIC ACID 500 MG TABLET (FP) PO SCH (09:20)
[2022-04-11] MEDS: FOLIC ACID 1 MG TABLET (FP) NGT SCH (09:20)
[2022-04-11] MEDS: MULTIVITAMINS (DAILY MVI) TABLET (FP) PO SCH (09:20)
[2022-04-11] MEDS: TAMSULOSIN HCL 0.4 MG CAP PO SCH (09:20)
[2022-04-11] MEDS: LABETALOL HCL 200 MG TABLET (FP) PO SCH ×2 (09:20→21:39)
[2022-04-11] MEDS: levETIRAcetam 250 MG TABLET PO SCH ×2 (09:20→21:39)
[2022-04-11] MEDS: ENOXAPARIN NA (PORCINE) 40 MG/0.4 ML DISP.SYRIN SQ SCH (09:21)
[2022-04-11] MEDS: NICOTINE 21 MG/24 HOURS TOPICAL PATCH TD SCH (09:21)
[2022-04-11 10:08] LABS: HEMATOCRIT 30.3 % (35.4-49); MCH 28.8 pg (25.7-33.7); MEAN CELL VOLUME 87.1 fl (80-96); MEAN PLT VOLUME 8.8 fl (7.5-11.1); PLATELET COUNT 330 10^3/uL (134-434); RBC 3.48 M/mm3 (4.00-5.60); RDW 13.8 % (11.9-15.9); WHITE BLOOD COUNT 7.9 K/mm3 (4.0-10.0)
[2022-04-11 10:25] LABS: ALBUMIN 2.3 g/dl (3.4-5.0); BLOOD UREA NITROGEN 6.2 mg/dL (7-18)
[2022-04-11 10:27] LABS: CALCIUM 8.8 mg/dL (8.5-10.1); MAGNESIUM 1.4 mg/dL (1.8-2.4)
[2022-04-11 10:28] LABS: PHOSPHOROUS 2.9 mg/dL (2.5-4.9)
[2022-04-11 10:29] LABS: BILIRUBIN,TOTAL 0.2 mg/dL (0.2-1)
[2022-04-11 10:30] LABS: TOT PROT 6.5 g/dl (6.4-8.2)
[2022-04-11] MEDS: CHOLESTYRAMINE/ASPARTAME 4 GM PACKET PO SCH ×2 (10:43→21:39)
[2022-04-11] MEDS: THIAMINE HCL 200 MG/2 ML VIAL IVPB SCH (11:16)
[2022-04-11] MEDS: LACTOBACILLUS ACIDOPHILUS 1 TABLET PO SCH (21:39)
[2022-04-12] MEDS: BANATROL PLUS POWDER PACKET PO SCH ×2 (05:15→15:30)
[2022-04-12] MEDS ORDERED: MAGNESIUM 1GM/D5W 100ML - 100 ML IVPB IVPB ONE (06:58)
[2022-04-12] MEDS ORDERED: MAGNESIUM OXIDE 400 MG TABLET (FP) PO ONE (07:06)
[2022-04-12] MEDS: TAMSULOSIN HCL 0.4 MG CAP PO SCH (08:16)
[2022-04-12] MEDS: ALBUTEROL SO4 2.5/IPRATROPIUM 0.5 INH SOL 3 ML VIAL.NEB. NEB SCH ×2 (08:21→11:41)
[2022-04-12 08:51] LABS: HEMATOCRIT 31.2 % (35.4-49); HEMOGLOBIN 10.3 GM/dL (11.7-16.9); MCH 28.5 pg (25.7-33.7); MEAN CELL VOLUME 86.3 fl (80-96); MEAN PLT VOLUME 8.6 fl (7.5-11.1); PLATELET COUNT 350 10^3/uL (134-434); RBC 3.62 M/mm3 (4.00-5.60); RDW 13.9 % (11.9-15.9); WHITE BLOOD COUNT 7.3 K/mm3 (4.0-10.0)
[2022-04-12] MEDS ORDERED: LACTULOSE 20 GM/30 ML UDC (FOR ORAL USE ONLY) PO SCH (10:00)
[2022-04-12] MEDS ORDERED: THIAMINE HCL 100 MG TABLET (FP) PO SCH (10:00)
[2022-04-12] MEDS: ASCORBIC ACID 500 MG TABLET (FP) PO SCH (10:21)
[2022-04-12] MEDS: PANTOPRAZOLE 40 MG TABLET PO SCH (10:21)
[2022-04-12] MEDS: LABETALOL HCL 200 MG TABLET (FP) PO SCH (10:21)
[2022-04-12] MEDS: amLODIPine BESYLATE 10 MG TABLET (FP) NGT SCH (10:21)
[2022-04-12] MEDS: FOLIC ACID 1 MG TABLET (FP) NGT SCH (10:21)
[2022-04-12] MEDS: levETIRAcetam 250 MG TABLET PO SCH (10:21)
[2022-04-12] MEDS: ASPIRIN COATED 81 MG TABLET.EC PO SCH (10:21)
[2022-04-12] MEDS: MULTIVITAMINS (DAILY MVI) TABLET (FP) PO SCH (10:21)
[2022-04-12] MEDS: NICOTINE 21 MG/24 HOURS TOPICAL PATCH TD SCH (10:22)
[2022-04-12] MEDS: ENOXAPARIN NA (PORCINE) 40 MG/0.4 ML DISP.SYRIN SQ SCH (10:22)
[2022-04-12] MEDS: CHOLESTYRAMINE/ASPARTAME 4 GM PACKET PO SCH (10:22)
[2022-04-12] MEDS ORDERED: LACTULOSE 20 GM/30 ML UDC (FOR ORAL USE ONLY) PO PRN (10:36)
[2022-04-12 11:03] LABS: ALBUMIN 2.4 g/dl (3.4-5.0); CALCIUM 9.1 mg/dL (8.5-10.1)
[2022-04-12 11:04] LABS: BLOOD UREA NITROGEN 7.4 mg/dL (7-18)
[2022-04-12 11:06] LABS: CREATININE 1.1 mg/dL (0.55-1.3)
[2022-04-12 11:08] LABS: BILIRUBIN,TOTAL 0.2 mg/dL (0.2-1); TOT PROT 6.8 g/dl (6.4-8.2)
[2022-04-12 15:20] VITALS: BP 126/77; PULSE 78; TEMP 97.6
== END 2022-04-12 17:15 | disposition home health service (06) | DRG 951 ==
LOC: JER 16:06 → JERBED 19:42 → J7W 03-16 21:28 → J4S 03-19 20:55 → JICU 03-22 00:12 → J7W 04-01 06:20
PROVIDERS: ADMIT Internal Medicine; ATTEND Internal Medicine
PROC: HZ2ZZZZ Detoxification Services for Substance Abuse Treatment (ICD-10-PCS; principal; 2022-03-15)
PROC: 5A1945Z Respiratory Ventilation, 24-96 Consecutive Hours (ICD-10-PCS; 2022-03-22)
PROC: 0BH17EZ Insertion of Endotracheal Airway into Trachea, Via Natural or Artificial Opening (ICD-10-PCS; 2022-03-22)
PROC: 0DH67UZ Insertion of Feeding Device into Stomach, Via Natural or Artificial Opening (ICD-10-PCS; 2022-03-22)
PROC: 3E0G76Z Introduction of Nutritional Substance into Upper GI, Via Natural or Artificial Opening (ICD-10-PCS; 2022-03-22)
PROC: 0HBRXZZ Excision of Toe Nail, External Approach (ICD-10-PCS; 2022-04-05)
DX: F10.239 Alcohol dependence with withdrawal, unspecified (principal); J69.0 Pneumonitis due to inhalation of food and vomit; G92.9 Unspecified toxic encephalopathy; J96.01 Acute respiratory failure with hypoxia; A40.9 Streptococcal sepsis, unspecified; G81.91 Hemiplegia, unspecified affecting right dominant side; N39.0 Urinary tract infection, site not specified; E87.3 Alkalosis; E87.0 Hyperosmolality and hypernatremia; I95.1 Orthostatic hypotension; R29.6 Repeated falls; I10 Essential (primary) hypertension; K72.90 Hepatic failure, unspecified without coma; S06.9X9A Unspecified intracranial injury with loss of consciousness of unspecified duration, initial encounter; B35.1 Tinea unguium; L89.312 Pressure ulcer of right buttock, stage 2; R56.9 Unspecified convulsions; I16.0 Hypertensive urgency; E86.0 Dehydration; R33.9 Retention of urine, unspecified; D72.829 Elevated white blood cell count, unspecified; R74.01 Elevation of levels of liver transaminase levels; W19.XXXA Unspecified fall, initial encounter; Y93.9 Activity, unspecified; Y92.89 Other specified places as the place of occurrence of the external cause; Y99.9 Unspecified external cause status
CPT/HCPCS: 31500; 36415; 36600; 70450-TC; 71045-TC-FY; 71275-TC; 72125-TC; 80048; 80053; 80177; 80307; 81003; 82140; 82272; 82607; 82746; 82803; 82962; 83605; 83735; 84100; 84484; 85025; 85027; 85610; 85730; 87040; 87070; 87077; 87086; 87186; 87205; 87324; 87389; 87449; 87899; 93005; 93010; 93306-TC; 93971-TC; 94002; 94640; 97116-GP; 97161-GP; 99283-25; 99285-25; C9803-CS; G0480; J0735; J1100; J3480; Q9967; U0003; U0005